=== PATIENT | female | born 1995 | race Caucasian/White ===

== ENCOUNTER → 2018-05-02 09:49 | Outpatient (CLI) | payer OTHER, SELFPAY ==
[2018-05-02 10:57] LABS: Basophils % 0.7 % (0.1-2.0); Eosinophils % 0.7 % (0.1-12.0); Hematocrit 46.4 % (37.0-47.0); Hemoglobin 15.1 g/dL (12.2-16.2); Lymphocytes # 2.5 K/mm3 (0.7-4.5); Lymphocytes % 39.2 % (10-50); Mean Corpuscular HGB Conc 32.5 g/dL (31.8-35.4); Mean Corpuscular Hemoglobin 31.2 pg (27.0-31.2); Mean Platelet Volume 7.4 fl (7.4-10.4); Monocytes # 0.3 K/mm3 (0.1-1.0); Monocytes % 4.3 % (1.7-9.3); Neutrophils # 3.4 K/mm3 (1.8-7.8); Neutrophils % 55.2 % (37.0-80.0); Platelet Count 240 K/mm3 (142-424); Red Blood Count 4.83 M/mm3 (4.20-5.40); Red Cell Distribution Width 12.3 % (11.5-17.5); White Blood Count 6.2 K/mm3 (4.8-10.8)
[2018-05-02 11:15] LABS: Alanine Aminotransferase 20 U/L (12-78); Albumin Level 3.8 gm/dL (3.4-5.0); Albumin/Globulin Ratio 1.1 (1.1-1.8); Alkaline Phosphatase 96 U/L (46-116); Anion Gap 15.7 mEq/L (5-15); Aspartate Amino Transferase 15 U/L (15-37); Bilirubin,Total 0.4 mg/dL (0.2-1.0); Blood Urea Nitrogen 13 mg/dL (7-18); Calcium 8.8 mg/dL (8.5-10.1); Carbon Dioxide 22 mmol/L (21.0-32.0); Chloride 104 mmol/L (98-107); Creatinine,Serum 0.85 mg/dL (0.55-1.02); Estimated Glomerular Filt Rate 84 ml/min (>60); GFR (African American) 101 ML/MIN (>60); Globulin 3.4 gm/dl (1.3-3.2); Glucose 84 mg/dL (74-106); Potassium 3.7 mmoL/L (3.5-5.1); Sodium 138 mmol/L (136-145); Total Protein,Serum 7.2 gm/dL (6.4-8.2)
[2018-05-03 17:19] LABS: Vitamin B12 305 pg/mL (232-1245); Vitamin D 25 Hydroxy 41.1 ng/mL (30.0-100.0)
== END ==
PROVIDERS: PCP Internal Medicine Adolescent Medicine; Visit Provider Nurse Practitioner Family
DX: F41.8 Other specified anxiety disorders (principal); R53.81 Other malaise
CPT/HCPCS: 36415; 80053; 82607; 82652; 84443; 85025

== ENCOUNTER → 2018-12-04 07:45 | Outpatient (CLI) | payer BC, SELFPAY ==
[2018-12-04 13:39] LABS: Basophils % 0.9 % (0.1-2.0); Eosinophils # 0.1 K/mm3 (0.0-0.4); Eosinophils % 2.6 % (0.1-12.0); Hematocrit 43.2 % (37.0-47.0); Hemoglobin 14.2 g/dL (12.2-16.2); Lymphocytes # 1.7 K/mm3 (0.7-4.5); Lymphocytes % 36.2 % (10-50); Mean Corpuscular HGB Conc 32.8 g/dL (31.8-35.4); Mean Corpuscular Hemoglobin 31.2 pg (27.0-31.2); Mean Corpuscular Volume 94.9 fl (81-99); Mean Platelet Volume 7.6 fl (7.4-10.4); Monocytes # 0.2 K/mm3 (0.1-1.0); Monocytes % 4.9 % (1.7-9.3); Neutrophils # 2.6 K/mm3 (1.8-7.8); Neutrophils % 55.4 % (37.0-80.0); Platelet Count 192 K/mm3 (142-424); Red Blood Count 4.55 M/mm3 (4.20-5.40); Red Cell Distribution Width 12.5 % (11.5-17.5); White Blood Count 4.7 K/mm3 (4.8-10.8)
[2018-12-04 15:24] LABS: Anion Gap 12.7 mEq/L (5-15); Blood Urea Nitrogen 11 mg/dL (7-18); Calcium 8.9 mg/dL (8.5-10.1); Carbon Dioxide 27 mmol/L (21.0-32.0); Chloride 105 mmol/L (98-107); Creatinine,Serum 0.89 mg/dL (0.55-1.02); Estimated Glomerular Filt Rate 79 ml/min (>60); GFR (African American) 95 ML/MIN (>60); Glucose 88 mg/dL (74-106); Potassium 3.7 mmoL/L (3.5-5.1); Sodium 141 mmol/L (136-145)
[2018-12-06 09:45] LABS: Vitamin B12 318 pg/mL (232-1245)
== END ==
PROVIDERS: PCP Nurse Practitioner Family; Visit Provider Nurse Practitioner Family
DX: F41.8 Other specified anxiety disorders (principal); E53.8 Deficiency of other specified B group vitamins
CPT/HCPCS: 36415; 80048; 82607; 85025

== ENCOUNTER 2019-10-03 14:55 | Emergency (ER) | payer OTHER, SELFPAY ==
[2019-10-03 15:19] VITALS: BP 133/84; PULSE 101; RESP 20; TEMP 37.1; O2SAT 100; BMI 31.6
[2019-10-03 15:45] LABS: Basophils % 0.3 % (0.1-2.0); Eosinophils % 0.4 % (0.1-12.0); Hematocrit 44.3 % (37.0-47.0); Hemoglobin 15.2 g/dL (12.2-16.2); Lymphocytes # 1.9 K/mm3 (0.7-4.5); Lymphocytes % 22.9 % (10-50); Mean Corpuscular HGB Conc 34.4 g/dL (31.8-35.4); Mean Corpuscular Hemoglobin 32.3 pg (27.0-31.2); Mean Corpuscular Volume 93.7 fl (81-99); Mean Platelet Volume 7.4 fl (7.4-10.4); Monocytes # 0.3 K/mm3 (0.1-1.0); Monocytes % 3.4 % (1.7-9.3); Neutrophils # 5.9 K/mm3 (1.8-7.8); Platelet Count 241 K/mm3 (142-424); Red Blood Count 4.72 M/mm3 (4.20-5.40); White Blood Count 8.1 K/mm3 (4.8-10.8)
--- NOTE | 2019-10-03 15:46 | HMH.EDUTC ---
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 GO TO THE ER FOR ANY WORSENING SYMPTOMS OR CONCERNS Referrals: Arcenio Oconnell APRN [Primary Care Provider] - Time of Disposition: 15:48 Medical Decision Making - Medical Records Medical records reviewed: No: I reviewed the patient's medical records. - Mj Inquiry Pt receiving controlled substance: No Vital Signs: 10/03/19 15:19 10/03/19 15:53 Temperature 98.7 F 98.7 F Temperature Source Oral Pulse Rate 101 H Pulse Rate [Right Brachial] 101 H Respiratory Rate 20 20 Blood Pressure 133/84 Blood Pressure [Right Arm] 133/84 Blood Pressure Mean [Right Arm] 100 Blood Pressure Source [Right Arm] Automatic Cuff Blood Pressure Position [Right Arm] Sitting 02 Sat by Pulse Oximetry 100 Oxygen Delivery Method Room Air - Lab Data Lab Results 10/03/19 15:20: WBC 8.1, RBC 4.72, Hgb 15.2, Hct 44.3, MCV 93.7, MCH 32.3 H, MCHC 34.4, RDW 13.0, Plt Count 241, MPV 7.4, Neut % (Auto) 73.0, Lymph % (Auto) 22.9, [place] % (Auto) 3.4, Eos % (Auto) 0.4, Baso % (Auto) 0.3, Neut # (Auto) 5.9, Lymph # (Auto) 1.9, [place] # (Auto) 0.3, Eos # (Auto) 0.0, Baso # (Auto) 0.0 10/03/19 15:20: PT 10.7, INR 1.04, APTT 21.9 L 10/03/19 15:20: Total Bilirubin 0.4, Direct Bilirubin 0.3, Conjugated Bilirubin 0.0, Indirect Bilirubin 0.1, Unconjugated Bilirubin 0.1, AST 27, ALT 19, Alkaline Phosphatase 83, Total Protein 7.7, Albumin 4.7 Result diagrams: 10/03/19 15:20 Orders (Tests/Meds): ED MEDICATIONS Discontinued Medications Generic Name Dose Route Start Last Admin Trade Name Freq PRN Reason Stop Dose Admin Tetanus/Reduced Diphtheria/Acell Pertussis 0.5 ml 10/03/19 15:26 10/03/19 15:35 Adacel Tdap 0.5ml Syringe IM 10/03/19 15:27 0.5 ml .ONCE ONE Administration ORDERS Category Date Time Status HIV Panel [id number] Stat Lab 10/03/19 15:20 Received [facility] [place] HPI - General Stated complaint: needle stick Time Seen by Provider: 10/03/19 15:25 Mode of Arrival: Ambulatory Source of Information: Patient Limitations: No Limitations Description of Symptoms (Recalled from Triage Doc. by RN): PATIENT C/O CONTAMINATED NEEDLE STICK AT WORK APPROX 1400 TODAY HEENT Symptoms (Recalled from RN notes): No Resp Symptoms (Recalled from RN notes): No Skin Symptoms (Recalled from RN notes): Yes MS Symptoms (Recalled from RN notes): No Functional Status (Recalled from RN notes): WNL - History of Present Illness Provider Complaint: She was at work today ([employer]) when she accidentily got a needle stick today after sticking a patient. She is here to have base line lab work done. Her tetanus immunization is not up to date. - Related Data Home Medications Medication Instructions Recorded Confirmed Buspirone HCl 15 mg PO DAILY 08/31/18 10/03/19 Venlafaxine HCl [Effexor Xr] 187 mg PO DAILY 08/31/18 10/03/19 norgestrel-ethinyl estradioL 1 tab PO DAILY 08/31/18 10/03/19 [Atl-Voruoczw-78 Tablet] Allergies Allergy/AdvReac Type Severity Reaction Status Date / Time No Known Allergies Allergy Verified 08/31/18 13:14 - Worker's Comp Is this a Worker's Comp case?: Yes [facility] History - Hepatitis A Screen Drug use history?: No High risk sexual behaviors?: No History of sexually transmitted infection?: No Currently employed?: No Childcare worker?: No Do you have indoor plumbing?: Yes Do you have electricity?: Yes Attestation statement:: This patient has been screened for Hepatitis A risk factors. I have reviewed the patient's past medical history: Yes - Social History Alcohol Intake: never Occupational Status: employed ROS Obtained
[2019-10-03 15:53] VITALS: BP 133/84; PULSE 101; RESP 20; TEMP 37.1; O2SAT 100
[2019-10-03 15:58] LABS: Alanine Aminotransferase 19 U/L (12-78); Albumin Level 4.7 g/dl (3.5-5.0); Alkaline Phosphatase 83 U/L (38-126); Aspartate Amino Transferase 27 U/L (14-36); Bilirubin,Direct 0.3 mg/dl (0.0-0.4); Bilirubin,Indirect 0.1 mg/dL (0.0-0.9); Bilirubin,Total 0.4 mg/dl (0.2-1.3); Bilirubin,Unconjugated 0.1 mg/dL (0.0-1.1); Total Protein,Serum 7.7 g/dl (6.3-8.2)
[2019-10-03 16:01] LABS: Activated Partial Thrombo Time 21.9 seconds (23.6-34.0); INR 1.04 (0.9-1.1); Prothrombin Time 10.7 seconds (9.4-11.8)
[2019-10-05 14:36] LABS: HIV Screen 4th Generation wRfx Non Reactive (Non Reactive)
== END 2019-10-03 15:55 | disposition home or self-care (01) ==
PROVIDERS: Emergency Provider Internal Medicine Adolescent Medicine; PCP Nurse Practitioner Family
DX: S61.230A Puncture wound without foreign body of right index finger without damage to nail, initial encounter (principal); W26.8XXA Contact with other sharp object(s), not elsewhere classified, initial encounter; W45.8XXA Other foreign body or object entering through skin, initial encounter; Y92.69 Other specified industrial and construction area as the place of occurrence of the external cause; Y99.0 Civilian activity done for income or pay; Z23 Encounter for immunization
CPT/HCPCS: 80076; 85025; 85610; 85730; 86703; 90471; 90715; 99201; G0432

== ENCOUNTER → 2021-04-28 10:16 | Outpatient (CLI) | payer BC, SELFPAY | PROVIDERS: PCP Internal Medicine Adolescent Medicine; Visit Provider Nurse Practitioner | DX: Z20.822 Contact with and (suspected) exposure to COVID-19 (principal) | CPT/HCPCS: C9803; U0003; U0005 ==

== ENCOUNTER 2022-06-04 10:38 | Emergency (ER) | payer BC, SELFPAY ==
[2022-06-04 10:45] VITALS: BP 138/82; PULSE 92; RESP 18; TEMP 36.4; O2SAT 98; BMI 30.5
[2022-06-04 10:58] LABS: Apearance,Urine Clear (Clear); Bilirubin,Urine Negative (Negative); Blood, Urine Negative (Negative); Color,Urine Dark Yellow (Yellow); Glucose,Urine (UA) Negative (Negative); Ketones,Urine Negative (Negative); Protein,Urine Negative (Negative); Specific Gravity, Urine 1.015 (1.005-1.030); UTC Leukocyte Esterase,Urine 2+ (Negative); UTC Nitrate,Urine Negative (Negative); Urobilinogen,Urine 0.2 EU/dl (0.2)
--- NOTE | 2022-06-04 11:11 | EXP.UTC ---
Discharge Plan Disposition Patient Disposition: Home, Self-Care Condition: Good Prescriptions Prescriptions: New methylprednisolone [Medrol ([place])] 4 mg tablets,dose pack See Rx Instructions .Route .COMPLEX 6 Days Qty: 21 0RF Rx Instructions: taper pack; nitrofurantoin monohyd/m-cryst [Macrobid] 100 mg capsule 100 mg PO Q12H 5 Days Qty: 10 0RF Rx Instructions: must administer with a meal/food No Action buspirone [BuSpar] 15 mg Tablet 15 mg PO DAILY desvenlafaxine succinate 100 mg tablet extended release 24 hr 100 mg PO DAILY Label Comments: TAKE ONE TABLET BY MOUTH EVERY DAY Ozempic 0.25 mg or 0.5 mg(2 mg/1.5 mL) pen injector 0.5 mg SQ WEEKLY Rx Instructions: 0.25mg weekly for 2 weeks then 0.5mg two weeks Referrals Follow up/Referrals: Akbar Gates MD [Primary Care Provider] - See instructions Activity Restrictions/Add. Instructions Additional Instructions/Restrictions: *Increase fluids. Water not Soda or Tea *Start antibiotic immediately and be sure to take as ordered for the FULL length of time although you should start to see improvement over the next 48 hours *Be SURE to follow up anytime for new or worsening symptoms with your family doctor. AND in 48 hours for urine culture results with your family doctor, if you do not have a doctor then you may call back to the [facility] for urine culture results and further treatment. We do recommend that you choose and establish care with a Primary Care Physician. ?AND follow up with them ?in 10-14 days to repeat UA to ensure infection is resolved and blood no longer present *Be sure to let your PCP know that we sent urine cultures from the [facility] so they can follow up to ensure that you area the on the correct antibiotic Call your doctor office and make appointment for 48 hours (2 days from today) ?to follow up and get the results of your urine culture and further treatment Over the counter Motrin may help with sciatica pain if you can take it Clinical Impressions Clinical Impression: UTI (urinary tract infection) Qualifiers: Urinary tract infection type: site unspecified Hematuria presence: without hematuria Qualified Code(s): N39.0 - Urinary tract infection, site not specified Sciatica Qualifiers: Laterality: unspecified laterality Qualified Code(s): M54.30 - Sciatica, unspecified side Instructions Patient Instructions: DI for Urinary Tract Infection (UTI), DI for Back Pain With Sciatica Discharge ED Provider: Anuradha Kolb [facility] General Stated complaint: Low back pain no accident Mode of Arrival: Ambulatory Source of Information: Patient Limitations: No Limitations Time Seen by Provider: 06/04/22 11:11 Description of Symptoms (Recalled from Triage Doc. by RN): PATIENT C/O MID LOWER BACK PAIN THAT RADIATES DOWN LEFT LEG HEENT Symptoms (Recalled from RN notes): No Resp Symptoms (Recalled from RN notes): No Skin Symptoms (Recalled from RN notes): No MS Symptoms (Recalled from RN notes): Yes Functional Status (Recalled from RN notes): WNL History of Present Illness Provider Complaint: Patient states that she has been going to gym for the last little bit and has been working out States that she thinks she may have a UTI and having issues with sciatica States that she is having achy like pain in her lower back but also having pain in her hip area that is going into her her left leg States that right leg hurts a little but worse in her left like she had before with sciatica Denies loss of control of bowel or bladder Related Data Home Medications Medication Instructions Recorded Confirmed buspirone 15 mg tablet 15 mg PO DAILY Anxiety 06/04/22 06/04/22 desvenlafaxine succinate 100 mg 100 mg PO DAILY Depression 06/04/22 06/04/22 tablet,extended release 24 hr semaglutide 0.25 mg or 0.5 mg (2 0.5 mg SQ WEEKLY Weight loss 06/04/22 06/04/22 mg/1.5 mL) subcutaneous pen injector (Ozempic) Previous Rx's Medic
[2022-06-04 11:26] LABS: Urine Pregnancy, HCG Qual. Negative (Negative)
[2022-06-04 11:42] VITALS: BP 138/82; PULSE 92; RESP 18; TEMP 36.4; O2SAT 98
== END 2022-06-04 11:50 | disposition home or self-care (01) ==
PROVIDERS: Emergency Provider Nurse Practitioner; PCP Internal Medicine Adolescent Medicine
DX: N39.0 Urinary tract infection, site not specified (principal); M54.30 Sciatica, unspecified side
CPT/HCPCS: 81003; 81025; 87086; 96372; 99213; 99214; G0463

== ENCOUNTER → 2022-11-11 11:15 | Outpatient (CLI) | payer BC, SELFPAY | PROVIDERS: PCP Nurse Practitioner Family; Visit Provider Nurse Practitioner Family | DX: J04.0 Acute laryngitis (principal) | CPT/HCPCS: 87070; 87077 ==

== ENCOUNTER 2023-07-18 14:00 | Outpatient (RCR) | payer BC, SELFPAY | END 2023-07-18 15:10 | disposition home or self-care (01) | LOC: PT 14:00 | PROVIDERS: Visit Provider Orthopaedic Surgery | DX: M22.42 Chondromalacia patellae, left knee (principal) | CPT/HCPCS: 97010; 97014; 97110; 97140; 97163; 97164; 97530; G0283 ==

== ENCOUNTER 2024-02-24 12:42 | Emergency (ER) | payer BC, SELFPAY ==
[2024-02-24 12:50] VITALS: BP 117/60; PULSE 104; RESP 21; TEMP 36.7; O2SAT 98; BMI 33.7
--- NOTE | 2024-02-24 13:05 | EXP.UTC ---
Discharge Plan Disposition Patient Disposition: Home, Self-Care Condition: Good Prescriptions Prescriptions: New cephalexin 500 mg tablet 500 mg PO BID 7 Days Qty: 14 0RF No Action desvenlafaxine succinate 100 mg tablet extended release 24 hr 100 mg PO DAILY Patient Comments: TAKE ONE TABLET BY MOUTH EVERY DAY FOR DEPRESSION Referrals Follow up/Referrals: Akbar Gates MD [Primary Care Provider] - See instructions Activity Restrictions/Add. Instructions Additional Instructions/Restrictions: Increase fluids, water and not soda or tea. Can drink cranberry juice or cranberry extract. Wipe front to back Wear cotton underwear Empty bladder after intercourse Start antibiotics immediately and make sure you take the full course although you may start to see improvement over the next 48 hours. You can eat yogurt or take probiotics to decrease diarrhea or yeast infection caused by the antibiotic Be sure to follow-up anytime for new or worsening symptoms in 48 hours for wound urine culture results be sure to let you PCP no recent urine for culture so they can request records and ensure that you have appropriate antibiotic if you are not getting better or getting worse. If symptoms worsen or do not improve return or be seen in the ER. Follow-up with primary care this week. Call [facility] or be checked out in the ER if abdominal pain or concerns Clinical Impressions Clinical Impression: UTI (urinary tract infection) Qualifiers: Urinary tract infection type: site unspecified Hematuria presence: without hematuria Qualified Code(s): N39.0 - Urinary tract infection, site not specified Instructions Patient Instructions: DI for Urinary Tract Infection (UTI) Print Language Print Language: Chinese Discharge ED Provider: Ronnie ([facility])[place] [facility] [place] General Stated complaint: uti Mode of Arrival: Ambulatory Source of Information: Patient Limitations: No Limitations Time Seen by Provider: 02/24/24 13:01 Description of Symptoms (Recalled from Triage Doc. by RN): PATIENT C/O PAIN AND FREQUENCY WITH URINATION THAT STARTED TODAY HEENT Symptoms (Recalled from RN notes): No Resp Symptoms (Recalled from RN notes): No Skin Symptoms (Recalled from RN notes): No MS Symptoms (Recalled from RN notes): No Functional Status (Recalled from RN notes): WNL History of Present Illness Provider Complaint: 28-year-old female presents for burning with urination, frequency and abdominal pain that started today. Patient is 20 weeks . Related Data Home Medications ?Medication ?Instructions ?Recorded ?Confirmed desvenlafaxine succinate 100 mg 100 mg PO DAILY 02/24/24 02/24/24 tablet,extended release 24 hr Previous Rx's ?Medication ?Instructions ?Recorded cephalexin 500 mg tablet 500 mg PO BID 7 days #14 tabs 02/24/24 Allergies Allergy/AdvReac Type Severity Reaction Status Date / Time No Known Allergies Allergy Verified 08/28/23 12:58 Worker's Comp Is this a Worker's Comp case?: No [facility] Disclaimer: The information contained in this section may have been updated after the patient was seen, as this information can be updated by other users. Medical History , [employer]) Anemia Migraine Hypertension Generalized anxiety disorder Depression Anxiety Surgical History , [employer]) History of bilateral knee replacement Family History , [employer]) Hyperlipidemia Cancer Hypertension Social History , [employer]) Smoking Status: Never smoker second hand exposure: No alcohol intake: current alcohol intake frequency: a few times a month counseling given: No substance use type: denies use counseling given: No current occupational status: employed Travel in the last 8 weeks: None adopted: No caregiver/support person: Yes (she has an 18 month old) foster care: No household members: spouse housing: house lives independently: Yes marital status: number of children: 1 number of grandchildren: 0 education level: college service: No 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 caffeine: Yes physical activity: none working smoke detector in home: Yes fire extinguisher in home: Yes carbon monox detector in home: Yes firearms in home: Yes firearms unloaded and locked: Yes do you feel safe at home: Yes victim of physical abuse: No victim of emotional abuse: No victim of sexual abuse: No would you like helpful sources: No ROS Obtained: Yes Systems reviewed as appropriate & no additional complaints except as documented Genitourinary Female Genitourinary: Reports system reviewed and no additional complaints, except as documented, Reports as per HPI, Reports urinary frequency, Reports urinary hesitancy and Reports urinary urgency Physical Exam General General appearance: alert and in no apparent distress Eye Eye exam: Present normal appearance and PERRL ENT ENT exam: Present normal exam Respiratory Respiratory exam: Present normal lung sounds bilaterally Cardiovascular Cardiovascular exam: Present regular rate and normal rhythm Abdominal Exam Abdominal exam: Present soft and normal bowel sounds Neurological Exam Neurological exam: Present alert and oriented X3 Skin Skin exam: Present warm and intact Lymphatic Lymphatic Findings: no adenopathy Medical Decision Making Medical Records Medical records reviewed: Yes I reviewed the patient's medical records. Screening: Per USPSTF and CDC recommendations, given the prevalence of disease in our region, it is our hospital?s policy to screen for HIV and viral Hepatitis for all patients aged 18 and over and those with ongoing risk factors. Mj Inquiry Pt receiving controlled substance: No Mj was queried for this patient: No Vital Signs: 02/24/24 12:50 Temperature 98.0 F Temperature Source Oral Pulse Rate [Left Brachial] 104 H Respiratory Rate 21 Blood Pressure [Left Arm] 117/60 Blood Pressure Mean [Left Arm] 79 Blood Pressure Source [Left Arm] Automatic Cuff Blood Pressure Position [Left Arm] Sitting 02 Sat by Pulse Oximetry 98 Oxygen Delivery Method Room Air Lab Data Lab results reviewed: Yes I reviewed the patient's lab results. Orders (Tests/Meds): ORDERS Category Date Time Status Urine Culture Stat Micro 02/24/24 12:58 Ordered
[2024-02-24 13:12] VITALS: BP 117/60; PULSE 104; RESP 21; TEMP 36.7; O2SAT 98
[2024-02-24 13:22] LABS: Apearance,Urine Cloudy (Clear); Color,Urine Yellow (Yellow)
[2024-02-24 13:23] LABS: Bilirubin,Urine Negative (Negative); Blood, Urine Trace (Negative); Glucose,Urine (UA) Negative (Negative); Ketones,Urine Negative (Negative); Protein,Urine Negative (Negative); UTC Leukocyte Esterase,Urine 2+ (Negative); UTC Nitrate,Urine Negative (Negative); Urobilinogen,Urine 0.2 EU/dl (0.2)
== END 2024-02-24 13:13 | disposition home or self-care (01) ==
PROVIDERS: Emergency Provider Nurse Practitioner Family; PCP Internal Medicine Adolescent Medicine
DX: N39.0 Urinary tract infection, site not specified (principal)
CPT/HCPCS: 81003; 87086; 99213; G0381

== ENCOUNTER 2024-02-24 16:51 | Outpatient (CLI) | payer BC, SELFPAY ==
[2024-02-24 17:05] VITALS: BMI 33.5
[2024-02-24 17:19] VITALS: BP 127/72; PULSE 95; RESP 18; TEMP 36.7; O2SAT 97; BMI 33.5
[2024-02-24] MEDS: LACTATED RINGERS 1000ML 1,000 ML 999 ML IV (17:38)
[2024-02-24] MEDS: CEFTRIAXONE SODIUM 2 GM in 0.9 % SODIUM CHLORIDE 100 ML IV (18:25)
== END 2024-02-24 19:00 | disposition home or self-care (01) ==
LOC: OBOUT 16:53 → OB 16:54
PROVIDERS: PCP Internal Medicine Adolescent Medicine; Visit Provider Nurse Practitioner Obstetrics & Gynecology
DX: O26.892 Other specified pregnancy related conditions, second trimester (principal); R30.9 Painful micturition, unspecified; Z3A.21 21 weeks gestation of pregnancy
CPT/HCPCS: G0463; J0696; J7120

== ENCOUNTER 2024-04-02 15:23 | Outpatient (CLI) | payer BC, SELFPAY ==
[2024-04-02 15:53] VITALS: BMI 34.7
[2024-04-02 16:05] LABS: Appearance,Urine CLEAR (Clear); Bilirubin,Urine Negative (Negative); Blood, Urine Negative (Negative); Color,Urine YELLOW (Yellow); Glucose,Urine (UA) Negative (Negative); Ketones,Urine Negative (Negative); Leukocyte Esterase,Urine 1+ (Negative); Microscopic, Urine URINE MICROSCOPIC (MICROSCOPIC); Nitrate,Urine Negative (Negative); PH,Urine 6.5 (5.0-8.5); Protein,Urine Negative (Negative)
[2024-04-02 16:17] VITALS: BP 132/76; PULSE 97; RESP 18; TEMP 36.5; BMI 34.7
[2024-04-02 16:46] LABS: Bacteria,Urine 4+ /lpf; RBC,Urine 20-50 #/hpf (0-3); Squamous Epithelial Cell,Urine 20-50 #/hpf (0-5); WBC,Urine 50-100 #/hpf (0-3)
[2024-04-02 20:49] LABS: Barbiturates Screen,Urine Negative ng/ml (<200)
[2024-04-02 20:50] LABS: Benzodiazepines Screen,Urine Negative ng/ml (<200)
[2024-04-02 20:51] LABS: Amphetamine/Metha Screen,Urine Negative ng/ml (<1000); Cannabinoid Screen,Urine Negative ng/ml (<50)
[2024-04-02 20:52] LABS: Cocaine Screen,Urine Negative ng/ml (<300); Methadone Screen,Urine Negative ng/ml (<300)
[2024-04-02 20:53] LABS: Opiate Screen,Urine Negative ng/ml (<300)
[2024-04-02 20:54] LABS: Phencyclidine Screen,Urine Negative ng/ml (<25)
== END 2024-04-02 16:50 | disposition home or self-care (01) ==
LOC: OBOUT 15:26 → OB 15:27
PROVIDERS: PCP Internal Medicine Adolescent Medicine; Visit Provider Nurse Practitioner Obstetrics & Gynecology
DX: R10.84 Generalized abdominal pain (principal); O26.893 Other specified pregnancy related conditions, third trimester; Z3A.26 26 weeks gestation of pregnancy
CPT/HCPCS: 59025; 80307; 81001; 87086

== ENCOUNTER 2025-01-19 07:22 | Emergency (ER) | payer BC, SELFPAY ==
--- OUTSIDE RECORDS SUMMARY | 2024-07-02 06:30 | XMS_ITS ---
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 Medications Medication SIG (Take, Route, Frequency, Duration) Notes Start Date End Date Status Ondansetron 4 MG Tablet Disintegrating 1 tablet on the tongue and allow to dissolve Orally every 6 hours; Duration: 30 days 02/22/2024 Active Fioricet 50-300-40 MG Capsule 1 capsule as needed Orally every 4 hrs as needed; Duration: 5 days 06/03/2024 Active Pristiq Active (w/Iron & FA) 27-0.8 MG Tablet 1 tablet Orally Once a day Active Pantoprazole Sodium 40 MG Tablet Delayed Release 1 tablet1 hour before morning meal Orally Once a day; Duration: 30 days 05/16/2024 Active busPIRone HCl 15 MG Tablet Oral; Duration: 90 Days Active Ferrous Sulfate 325 (65 Fe) MG Tablet Delayed Release 1 tablet Orally Daily; Duration: 30 days 05/14/2024 Active Social History Sex Assigned At : Social History Observation Description Sex Assigned At Female Encounters Encounter Location Date Provider Diagnosis [facility] [address] [place] [address] 07/02/2024 Monet Bergeron Plan Of Treatment Next Appt Details Provider Name:Viki Cooper, 05/04/2025 01:45:00 PM, [address], [address], [place], [address], Progress Notes * Elis ESPITIA MDOB: [birth year] (29 yo F)Acc No.[id number]:07/02/2024 Patient: Elis Bailey Provider: Denise Bergeron MD :1995 A ge:29 Y S ex:Female Date:07/02/2024 Address:[address] [place] [address] [id number] Subjective: * Chief Complaints: * 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 * Medications: T akingbusPIRone HCl 15 MG Tablet Oral Ferrous Sulfate 325 (65 Fe) MG Tablet Delayed Release 1 tablet Orally Daily Fioricet(Hkjioswnxo-CADV-Ddwbcski) 50-300-40 MG Capsule 1 capsule as needed Orally every 4 hrs as needed Ondansetron 4 MG Tablet Disintegrating 1 tablet on the tongue and allow to dissolve Orally every 6 hours Pantoprazole Sodium 40 MG Tablet Delayed Release 1 tablet1 hour before morning meal Orally Once a day (w/Iron & FA)( Rvkbrdha-Dxp-Cx-FA) 27-0.8 MG Tablet 1 tablet Orally Once a day Pristiq Taking busPIRone HCl 15 MG Tablet Oral Taking Ferrous Sulfate 325 (65 Fe) MG Tablet Delayed Release 1 tablet Orally Daily Taking Fioricet(Ovgmcgsypt-HSMY-Rzgxzabn) 50-300-40 MG Capsule 1 capsule as needed Orally every 4 hrs as needed Taking Ondansetron 4 MG Tablet Disintegrating 1 tablet on the tongue and allow to dissolve Orally every 6 hours Taking Pantoprazole Sodium 40 MG Tablet Delayed Release 1 tablet1 hour before morning meal Orally Once a day Taking (w/Iron & FA)( Ocsgzifp-Wvl-Ao-FA) 27-0.8 MG Tablet 1 tablet Orally Once a day Taking Pristiq Billing Information: * Procedure Codes: * Electronic signature of Deangelo Bergeron MD on 01/19/2025 at 07:39 AM EDT Sign off status: Pending Visit Status: C HK (Check Out) * Provider: Denise Bergeron MD Date: 0 07/02/2024 Generated for Beni ng/Cordeliag/eTransmitting on: 1 07:39 AM EDT
[2025-01-19 07:33] VITALS: BP 119/70; PULSE 88; PULSE 89; RESP 18; TEMP 36.8; O2SAT 99; BMI 31.8
--- NOTE | 2025-01-19 07:39 | CT_ITS ---
FINAL REPORT TECHNIQUE: Thin section axial images are obtained through the abdomen and pelvis after intravenous contrast. Reconstruction images were obtained from the axial data. This study was performed with techniques to keep radiation doses as low as reasonably achievable, (ALARA). Individualized dose reduction techniques using automated exposure control or adjustment of mA and/or kV according to the patient's size were employed. CLINICAL HISTORY: Lower abd pain, bloody diarrhea COMPARISON: None FINDINGS: LUNG BASES: Lung bases are clear. Heart size is normal. LIVER: Homogeneous. No focal lesion. GALLBLADDER/BILIARY SYSTEM: Gallbladder is present. No gallstones. No biliary dilatation. SPLEEN: Unremarkable. PANCREAS: Unremarkable. ADRENALS: Unremarkable. KIDNEYS/URETERS/BLADDER: No hydronephrosis, renal mass, or renal stone. Unremarkable urinary bladder. GI TRACT: No small bowel obstruction or dilatation. The appendix is not visualized. There are no secondary signs of appendicitis. There is long segment wall thickening of the descending colon most consistent with colitis. PELVIC ORGANS: The uterus and ovaries are unremarkable for age. LYMPH NODES/RETROPERITONEUM/MESENTERY: No lymphadenopathy. No abdominal aortic aneurysm. ABDOMINAL WALL: The abdominal wall is intact. FREE FLUID: No ascites. BONES: No acute osseous abnormality. IMPRESSION: Descending colitis, favor infectious or inflammatory etiology Reviewed, Interpreted and Dictated by Sara Flores MD Transcribed by Donya Lewis Authenticated and [facility]
--- NOTE | 2025-01-19 07:40 | ED_ITS ---
Discharge Plan Disposition Patient Disposition: Home, Self-Care Condition: Good Prescriptions Prescriptions: New ondansetron 4 mg tablet,disintegrating 4 mg PO Q6H PRN (Reason: nausea and vomiting) Qty: 14 0RF No Action desvenlafaxine succinate 100 mg tablet extended release 24 hr 100 mg PO DAILY Qty: 90 3RF buspirone 10 mg tablet 20 mg PO QHS Qty: 60 2RF Zurzuvae 25 mg capsule 50 mg PO DAILY 14 Days Qty: 28 0RF Rx Instructions: administer with a high fat meal Referrals Follow up/Referrals: Akbar Gates MD [Primary Care Provider, Internal Medicine] - See instructions Activity Restrictions/Add. Instructions Additional Instructions/Restrictions: Your CT scans show colitis. If you continue to have bloody diarrhea over the course of the next week please come back and see us. Additionally, if you develop signs of dehydration, intractable nausea/vomiting, worsening pain, or start to develop lightheadedness, shortness of breath, or increasingly pale skin please return to the ER. You may take Zofran every 6 hours for nausea. Clinical Impressions Clinical Impression: Colitis Instructions Patient Instructions: DI for Colitis Print Language Print Language: Kazakh Discharge ED Provider: Justice Taylor General Adult HPI General Chief complaint: Abdominal Pain Stated complaint: Vomiting, bloody stools, GI Problems Time Seen by Provider: 01/19/25 07:26 Mode of Arrival: Ambulatory Source of Information: Patient Description of Symptoms (Recalled from ER Triage Doc. by RN): pt presents to the ED with vomiting, diarrhea, blood in stool, and abdominal pain. pt reports that she started having abdominal cramping on Sunday after eating greasy food. pt reports around midnight she started vomiting. pt has had diarrhea since Sunday night and noticed around 03:00 this morning she had blood in her stool and when she wiped. Denies chest pain and shortness of breath. History of Present Illness HPI narrative: This is a 29-year-old female patient, with past medical history of anxiety and depression, who is presenting to the emergency department today for evaluation of bloody diarrhea. Patient states that around 3 AM she began having bright red hematochezia. Stool is blood-streaked. She states that since 3 AM this morning, over the last 4 hours, she has had 3 episodes of bloody diarrhea. She states that she is having focal pain in the lower abdomen that is worse on the right. This has never happened before. She is not having any melena or hematemesis but she is having nausea and vomiting. She is not experiencing bleeding from anywhere else and specifically denies hemoptysis, hematuria, and vaginal bleeding. No fevers. This has never happened before. She has not noticed any hemorrhoids and does not have any anal pain that would be consistent with fissures. No family history or personal history of autoimmune related diseases. Related Data Previous Rx's ?Medication ?Instructions ?Recorded buspirone 10 mg tablet 20 mg (2 x 10 mg) PO QHS #60 tabs 08/05/24 desvenlafaxine succinate 100 mg 100 mg PO DAILY #90 ta bs 08/05/24 tablet,extended release 24 hr zuranolone 25 mg capsule (Zurzuvae) 50 mg (2 x 25 mg) PO DAILY 14 days 09/04/24 #28 caps ondansetron 4 mg disintegrating 4 mg PO Q6H PRN nausea and 01/19/25 tablet vomiting #14 tabs Allergies Allergy/AdvReac Type Severity Reaction Status Date / Time No Known Allergies Allergy Verified 12/19/24 10:58 [facility] Disclaimer: The information contained in this section may have been updated after the patient was seen, as this information can be updated by other users. Medical History Anemia Migraine Hypertension Generalized anxiety disorder Depression Anxiety Surgical History History of bilateral knee replacement Family History Other Cancer Hyperlipidemia Hypertension Social History Smoking Status: Never smoker second hand exposure: No alcohol intake: current alcohol intake frequency: a few times a month counseling given: No substance use type: denies use counseling given: No current occupational status: employed Travel in the last 8 weeks?: None adopted: No caregiver/support person: Yes (she has an 18 month old) foster care: No household members: spouse housing: house lives independently: Yes marital status: number of children: 1 number of grandchildren: 0 education level: college service: No 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 caffeine: Yes physical activity: none working smoke detector in home: Yes fire extinguisher in home: Yes carbon monox detector in home: Yes firearms in home: Yes firearms unloaded and locked: Yes do you feel safe at home: Yes victim of physical abuse: No victim of emotional abuse: No victim of sexual abuse: No would you like helpful sources: No Have you lived/traveled outside US in past 30 days?: No Contact w/someone who lives/traveled outside US past 30 days?: No Exposure to someone with infectious disease in past 14 days?: No Do you have a fever (greater than 100.4 F or 38 C)?: No Have you tested positive for COVID-19?: No Exposed to someone with COVID-19 in past 14 days?: No Do you have a sore throat?: No Do you have a cough?: No Do you have any weakness?: No Do you have any diarrhea?: Yes Are you experiencing any unusual bleeding?: Yes Do you have any muscle aches/pain?: No Do you have any abdominal pain?: No Are you experiencing loss of taste or smell?: No Other Medical History Have you received the Flu Vaccine for this season: No Have you received the Pneumonia Vaccine: No ROS Obtained: Yes Systems reviewed as appropriate & no additional complaints except as documented Physical Exam General General appearance: other (See MDM) Respiratory Respiratory exam: Present other (See MDM) Cardiovascular Cardiovascular exam: Present other (See MDM) Neurological Exam Neurological exam: Present other (See MDM) Medical Decision Making Medical Records Medical records reviewed: Yes I reviewed the patient's medical records. Screening: Per USPSTF and CDC recommendations, given the prevalence of disease in our region, it is our hospital?s policy to screen for HIV and viral Hepatitis for all patients aged 18 and over and those with ongoing risk factors. Mj Inquiry Pt receiving controlled substance: No Mj was queried for this patient: No Vital Signs: 01/19/25 07:33 01/19/25 07:33 01/19/25 08:00 Temperature 98.2 F 98.2 F Temperature Source Oral Oral Pulse Rate 89 Pulse Rate [Right] 88 Respiratory Rate 18 18 Blood Pressure 119/70 92/59 L Blood Pressure [Right Arm] 119/70 Blood Pressure Mean 70 Blood Pressure Mean [Right Arm] 86 Blood Pressure Source Automatic Cuff Blood Pressure Source [Right Arm] Automatic Cuff Blood Pressure Position Supine Blood Pressure Position [Right Arm] Supine 02 Sat by Pulse Oximetry 99 99 Oxygen Delivery Method Room Air Room Air 01/19/25 08:30 01/19/25 09:30 Temperature Temperature Source Pulse Rate 58 L Pulse Rate [Right] Respiratory Rate Blood Pressure 95/56 L 112/68 Blood Pressure [Right Arm] Blood Pressure Mean 70 77 Blood Pressure Mean [Right Arm] Blood Pressure Source Blood Pressure Source [Right Arm] Blood Pressure Position Blood Pressure Position [Right Arm] 02 Sat by Pulse Oximetry 100 Oxygen Delivery Method Lab Data Lab Results 01/19/25 07:43: WBC 9.1, RBC 4.92, Hgb 15.1, Hct 44.5, MCV 90.4, MCH 30.7, MCHC 33.9, RDW 12.5, Plt Count 218, MPV 10.1, Neut % (Auto) 80.3 H, Lymph % (Auto) 13.6, [place] % (Auto) 4.5, Eos % (Auto) 0.7, Baso % (Auto) 0.7, Neut # (Auto) 7.3, Lymph # (Auto) 1.2, [place] # (Auto) 0.4, Eos # (Auto) 0.1, Baso # (Auto) 0.1, PT 11.4, INR 1.03, APTT 24.8, Sodium 136, Potassium 4.0, Chloride 103, Carbon Dioxide 25, Anion Gap 12.0, BUN 13, Creatinine 0.70, Estimated Creat Clear 167, Estimated GFR 99, Est GFR ( Amer) 120, Glucose 106 H, Calcium 9.3, Total Bilirubin 0.4, AST 29, ALT 26, Alkaline Phosphatase 123, Total Protein 7.5, Albumin 4.2, Globulin 3.3 H, Albumin/Globulin Ratio 1.3, Lipase 179, Serum HCG, Qual Negative, HCV Ab ANUPAM w/Rflx PCR Qn Negative, HIV Ag/Ab Combo Qual Negative 01/19/25 07:55: Blood Type O Positive, Antibody Screen Negative 01/19/25 09:13: Urine Color Yellow, Urine Appearance Clear, Urine pH 5.5, Ur Specific [place] 1.029, Urine Protein Negative, Urine Glucose (UA) Negative, Urine Ketones Negative, Urine Blood Negative, Urine Nitrate Negative, Urine Bilirubin Negative, Urine Urobilinogen 0.2, Ur Leukocyte Esterase Negative 01/19/25 07:43 01/19/25 07:43 Orders (Tests/Meds): ED MEDICATIONS Discontinued Medications Generic Name Dose Route Start Last Admin Trade Name Srikanthq PRN Reason Stop Dose Admin Lactated Ringer's 1,000 mls @ 999 mls/hr 01/19/25 07:42 01/19/25 09:07 Lactated Ringer's 1000 Ml Bag IV 01/19/25 08:42 Infused .Q1H1M ONE Infusion Iopamidol 75 ml 01/19/25 08:45 01/19/25 08:45 Iopamidol-370 (76%);100ml Bottle IV 01/19/25 08:46 75 ml ONCE ONE Administration Ondansetron HCl 4 mg 01/19/25 07:39 01/19/25 08:01 Ondansetron 4mg/2ml Vial IV 01/19/25 07:40 4 mg ONCE ONE Administration Sodium Chloride 10 ml 01/19/25 08:45 01/19/25 08:45 Sodium Chloride 0.9% 10ml Syr (Rad Only) IV 01/19/25 08:46 10 ml ONCE ONE Administration ORDERS Category Date Time Status Type and Screen Stat BBK 01/19/25 07:[address] abdomen pelvis w con Stat Cat Scan 01/19/25 07:39 Completed Activated Partial Thrombo Time Stat Lab 01/19/25 07:43 Completed CBC w/Auto Diff [Complete Blood Count Auto Diff] Stat Lab 01/19/25 07:43 Completed CMP [Comprehensive Metabolic Panel] Stat Lab 01/19/25 07:43 Completed Diarrhea 23 Panel, PCR Stat Lab 01/19/25 07:42 Ordered HCG Qualitative, Serum Stat Lab 01/19/25 07:43 Completed HIV Combo Stat Lab 01/19/25 07:43 Completed Hepatitis C Ab Qual. W/ RFX Stat Lab 01/19/25 07:43 Completed Lactic Acid Stat Lab 01/19/25 07:39 Ordered Lipase Stat Lab 01/19/25 07:43 Completed PT INR [Prothrombin Time INR] Stat Lab 01/19/25 07:43 Completed Urinalysis and Microscopic Stat Lab 01/19/25 09:13 Results Medical Decision Narrative: In summary, this is a 29-year-old female patient who is presenting for multiple episodes of bloody diarrhea over the last 4 hours. This has never happened before. She has not experiencing bleeding from any other orifices. No melena or hematemesis. She has not recently been ill. No history of autoimmune diseases. Her only comorbidities include a past medical history of anxiety and depression. On initial evaluation of the patient they were resting comfortably in no acute distress and nontoxic in appearance. They are hemodynamically stable, saturating well room air, and are neurologically intact. On physical examination the patient she is appropriately alert and interactive with GCS of 15. Heart and lungs are clear to auscultation bilaterally. She has focal tenderness in the right lower quadrant and left lower quadrant, no rebound or peritonitis. Capillary refill is adequate. She has no conjunctival pallor. On further questioning she states that she is not experiencing any symptoms of anemia such as fatigue, dyspnea on exertion, or lightheadedness with standing. Differential diagnosis includes hemorrhoidal bleeding, diverticular bleeding, angiodysplasia, infectious colitis, inflammatory bowel disease, among others Workup was initiated with hematologic labs including a type and screen as well as a diarrhea panel and a CT scan of the abdomen and pelvis. Initial interventions include 4 mg of Zofran and 1 L of lactated Ringer's. Labs personally interpreted by me demonstrate no leukocytosis or anemia. Hemoglobin is 15. PT/INR is within normal limits. No electrolyte derangements or evidence of acute kidney injury. No transaminitis or elevated bilirubin. Lipase is normal. Qualitative hCG is also normal. No evidence of urinary tract infection on urinalysis. We did proceed with a CT scan of the abdomen and pelvis which was personally interpreted by me and demonstrates no evidence of large pneumoperitoneum. Official radiology read is in agreement and states the patient does have evidence of descending colitis, which could be infectious or inflammatory in nature. Given the fact that the patient does not have a longstanding history of abdominal pain and diarrhea and has no history of autoimmune diseases this is unlikely to be inflammatory colitis. The patient has been unable to provide a stool sample while here in the emergency department. I have offered to send her with an outpatient order for stool sample and have her return to the outpatient lab to provide us with a stool sample. She would like to defer this at the at this time and would like to go home and continue to monitor her symptoms over the next week. I have given her strict return precautions in the event that she experiences symptomatic anemia, intractable nausea and vomiting/diarrhea with signs of dehydration, or symptoms persisting for greater than a week. On repeat assessment her blood pressure is normal and her heart rate is normal. She is demonstrating no signs of sepsis. All parties are agreeable with the decision to discharge her home Critical Care Critical Care Time Critical Care Time: No
--- OUTSIDE RECORDS SUMMARY | 2025-01-19 07:40 | XMS_ITS | Clinical Summary ---
Author Organization [facility] Address [address] [place] [address] Care Team Providers Care Case Investigator Name Role Phone Akbar Gates MD Primary Care Provider + [phone] Allergies No known active allergies Medications busPIRone (BUSPAR) 15 MG tablet Take 1 tablet by mouth Daily. Active desvenlafaxine (PRISTIQ) 50 MG 24 hr tablet Take 25 mg by mouth Daily. Active Vit-Fe Fumarate-FA ( 27-) 27-1 MG tablet tablet Take by mouth Daily. Active acetaminophen (TYLENOL) 325 MG tablet Take 2 tablets by mouth Every 4 (Four) Hours As Needed for Mild Pain . 09/27/2020 Active ferrous sulfate 325 (65 FE) MG tablet Take 1 tablet by mouth Daily With Breakfast. Active omeprazole (priLOSEC) 20 MG capsule Take 1 capsule by mouth Daily. Active docusate sodium 100 MG capsule Take 1 capsule by mouth 2 (Two) Times a Day. 60 capsule 07/04/2024 9:26 AM EDT 07/04/2024 Active ibuprofen (ADVIL,MOTRIN) 600 MG tablet Take 1 tablet by mouth Every 6 (Six) Hours As Needed for Mild Pain 60 tablet 07/04/2024 9:26 AM EDT 07/04/2024 Active Active Problems Problem Noted Date Diagnosed Date Term 09/27/2020 Resolved Problems Problem Noted Date Diagnosed Date Resolved Date Third trimester 05/18/2024 Vaginal delivery 09/27/2020 07/02/2024 with 37 weeks completed gestation 09/27/2020 07/02/2024 38 weeks gestation of 09/24/2020 09/27/2020 Gestational hypertension 09/24/2020 uterine contractions 08/31/2020 09/24/2020 Pelvic pain affecting pregna ncy in third trimester, antepartum 07/03/2020 09/24/2020 Family History Medical History Relation Name Comments High cholesterol Father Cancer Maternal Grandfather Hypertension Mother Parkinsonism Paternal Grandfather Alzheimer's disease Paternal Grandmother Relation Name Status Comments Father Maternal Grandfather Mother Paternal Grandfather Paternal Grandmother Social History Tobacco Use Types Packs/Day Years Used Date Smoking Tobacco: Never Smokeless Tobacco: Never Alcohol Use Standard Drinks/Week Comments Never 0 (1 standard drink = 0.6 oz pur e alcohol) [facility] Utilities Answer Date Recorded In the past 12 months has e electric, gas, oil, or water company threatened to shut off services in your home? No 07/02/2024 AUDIT-C Answer Date Recorded Q1: How often do you have a drink containing alcohol? Never 07/02/2024 Q2: How many drinks containi ng alcohol do you have on a typical day when you are drinking? Patient does not drink Q3: How often do you have si x or more drinks on one occasion? Never 07/02/2024 Overall Financial Resource Strain (CARDIA) Answe r Date Recorded How hard is it for you to pa y for the very basics like food, housing, medical care, and heating? Not hard at all 07/02/2024 [facility] [place] [facility] Occupat ional Health - Occupational Stress Questionnaire Answer Date Recorded Do you feel stress - tense, restless, nervous, or anxious, or unable to sleep at night because your mind is troubled all the time - these days? Not at all 07/02/2024 Exercise Vital Sign Answer Date Recorde d On average, how many days pe r week do you engage in moderate to strenuous exercise (like a brisk walk)? 1 day 07/02/2024 On average, how many minutes do you engage in exercise at this level? 20 min 07/02/2024 Hunger Vital Sign Answer Date Recorded Within the past 12 months, y ou worried that your food would run out before you got the money to buy more. Never true 07/03/19 25 Within the past 12 months, t he food you bought just didn't last and you didn't have money to get more. Never true 07/02/2024 PRAPARE - Transportation Answer Date Re corded In the past 12 months, has l ack of transportation kept you from medical appointments or from getting medications? No 06/14 In the past 12 months, has l ack of transportation kept you from meetings, work, or from getting things needed for daily living? No 07/02/2024 [place] Depression Scale Answer Date Recorded [place] Depression Scale Total 5 07/03/2024 The thought of harming myself has occurred to me . Never 07/03/2024 Abuse Screen Answer Date Recorded Feels Unsafe at Home or Work/School no 07/02/2024 Feels Threatened by Someone no 06/14 Does Anyone Try to Keep You From Having Contact with Others or Doing Things Outside Your Home? no 07/02/2024 Physical Signs of Abuse Present no 07/02/2024 Housing Stability Answer Date Recorded Current Living Arrangements home 06/14 Potentially Unsafe Housing Conditions none 07/02/2024 Family and Community Support Answer Guilherme e Recorded If for any reason you need h elp with day-to-day activities such as bathing, preparing meals, shopping, managing finances, etc., do you get the help you need? I don't need any help 07/02/2024 How often do you feel lonely or isolated from those around you? Never 07/02/2024 Employment Answer Date Recorded Do you want help finding or keeping work or a job? I do not need or want help 07/02/2024 Disabilities Answer Date Recorded Difficulty Concentrating, Remembering or Making Decisions no 07/02/2024 Difficulty Managing Errands Independently no 07/02/2024 Education Answer Date Recorded Do you want help with school or training? For example, starting or completing job training or getting a high school diploma, GED or equivalent No 07/02/2024 Preferred Language Frisian 07/02/2024 PHQ-2 Answer Date Recorded Patient Health Questionnaire-2 Score 0 07/02/2024 Comments No Sex and Gender Information Value Date Recorded Sex Assigned at Not on file Legal Sex Female 4:30 PM EDT Gender Identity Not on file Sexual Orientation Not on file Last Filed Vital Signs Vital Sign Reading Time Taken Comments Blood Pressure 117/56 07/04/2024 9:05 AM EDT Pulse 84 07/04/2024 9:05 AM EDT Temperature 36.8 C (98.2 F) 07/04/2024 9:05 AM EDT Respiratory Rate 18 07/04/2024 9:05 AM EDT Oxygen Saturation 97% 07/03/2024 2:11 PM EDT Inhaled Oxygen Concentration - - Weight 103 kg (228 lb) 07/02/2024 8:42 AM EDT Height 167.6 cm (5' 6 ) 07/02/2024 8:42 AM EDT Body Mass Index 36.8 07/02/2024 8:42 AM EDT Plan of Treatment Health Maintenance Due Date Last Done Comments Annual Gynecologic Pelvic and Breast Exam 1995 ANNUAL PHYSICAL 06/27/2024 INFLUENZA VACCINE 11/14/2024 04/11/2024, , 01/28/2021, Additional history exists TDAP/TD VACCINES (3 - Td or Tdap) 09/15/2030 09/15/2020, 10/03/2019 CHLAMYDIA SCREENING Discontinued 12/03/2023 HEPATITIS C SCREENING Completed 12/03/2023, 020 Pneumococcal Vaccine 0-49 Aged Out No longer eligible based on patient's age to complete this topic Procedures Procedure Name Priority Date/Time Associated Diagnosis Comments CHLAMYDIA TRACHOMATIS, NEISSERIA GONORRHOEAE, PCR W/ CONFIRMATION Routine 12/03/2023 1:56 PM EDT care, subsequent , first trimester HEPATITIS C ANTIBODY Routine 12/03/2023 1:56 PM EDT care, subsequent , first trimester from Last 3 Months or Most Recently Relevant to Health Maintenance Results * Hepatitis C Antibody (12/03/2023 1:56 PM EDT) Hepatitis C Ab Non-Reacti ve Non-Reacti ve 12/03/2023 7:52 PM EDT [facility] Blood Venipuncture / Unknown 12/03/2023 1:56 PM EDT 12/03/2023 1:58 PM EDT Monet Bergeron MD LAB BLOOD ORDERABLES Final Re sult [facility]
[address] [place] [address], * Chlamydia trachomatis, Neisseria gonorrhoeae, PCR w/ confirmation - Urine, Urine, Clean Catch (12/03/2023 1:56 PM EDT) Chlamydia trachomatis, RAFAEL Negative Negative 12/06/2023 8:19 AM EDT [facility] Neisseria gonorrhoeae, RAFAEL Negative Negative 12/06/2023 8:19 AM EDT [facility] Urine Urine specimen obtained by clean catch procedure / Unknown Collection / Unknown 12/03/2023 1:56 PM EDT 12/03/2023 1:58 PM EDT Narrative [facility] - 12/06/2023 8:19 AM EDT Performed at: - [address] [id number] Installment Dealer: Jennifer Mckeon MD, Phone: [phone] Monet Bergeron MD MICROBIOLOGY - GENERAL ORDERA BLES Final Result [facility] [address] [place] [address], from Last 3 Months or Most Recently Relevant to Health Maintenance Insurance [facility] [place] [id number] [employer]EE Advance Directives * CPR (Attempt to Resuscitate) (Latest Code Status on File) Date Activated Date Inactivated Comments 07/02/2024 6:15 PM 07/04/2024 2:16 PM Question Answer Comments Code Status (Patient has no pulse and is not breathing): CPR (Attempt to Resuscitate) Medical Interventions (Patie nt has pulse or is breathing): Full * CPR (Attempt to Resuscitate) Date Activated Date Inactivated Comments 07/02/2024 8:54 AM 07/02/2024 6:15 PM Question Answer Comments Code Status (Patient has no pulse and is not breathing): CPR (Attempt to Resuscitate) Medical Interventions (Patie nt has pulse or is breathing): Full Support Level Of Support Discussed With: Patient * CPR (Attempt to Resuscitate) Date Activated Date Inactivated Comments 09/25/2020 9:18 PM 09/27/2020 3:50 PM Question Answer Comments Code Status (Patient has no pulse and is not breathing): CPR (Attempt to Resuscitate) Medical Interventions (Patie nt has pulse or is breathing): Full * CPR (Attempt to Resuscitate) Date Activated Date Inactivated Comments 09/24/2020 11:01 PM 09/25/2020 9:18 PM Question Answer Comments Code Status (Patient has no pulse and is not breathing): CPR (Attempt to Resuscitate) Medical Interventions (Patie nt has pulse or is breathing): Full Care Teams Case Investigator Relationship Specialty Start Date End Date Akbar Gates MD [facility] [address] [facility] [address] [place] [address] PCP - General Adolescent Medicine 02/09/20
--- OUTSIDE RECORDS SUMMARY | 2025-01-19 07:40 | XMS_ITS | Patient Health Record ---
Author Organization [facility] Address [address] [place] [address] Care Team Providers Care Creative Art Director Name Role Phone Monet Bergeron Unavailable [phone] Oxana Paiz Unavailable [phone] TyroneRose louis Unavailable [phone] Allergies No Known Allergies Results Component Value Reference Range Flag Notes Soraya/Bacterial Vaginosis/ Trichomonas, RAFAEL (Aptima) Reviewed date:04/21/2024 01:49:09 PM Interpretation:Negative Performing Lab:[facility] [place] CLIA ID [id number], [address], [address], [place] [address], Director - Anrdea Jovel MD Notes/Report: Bacterial Vaginosis Negative Negative The Aptima BV assay is a real time NAAT TMA assay developed for use on the automated Eminence system that detects and discriminates RNA markers from the Lactobacillus species group (L. gasseri, L. crispatus and L. jensenii), Gardnerella vaginalis, and Atopobium vaginae. The Aptima BV assay uses an algorithm for bacterial vaginosis based on detection of target organisms. Soraya species Negative Negative The CV Assay is a real time TMA assay developed for use on the automated Eminence system that detects following Soraya species organisms (C. albicans, C. tropicalis, C. parapsilosis, C. dubliniensis), but the assay does not differentiate among C spp. Soraya glabrata Negative Negative Trichomonas Negative Negative Group B Strep by PCR Reviewed date:06/12/2024 02:36:00 PM Interpretation:Negative Performing Lab:[facility] CLIA ID [id number], [address], [address], [place] [address], Director - Andrea Jovel MD Notes/Report: Group B Strep by PCR (XC) NEGATIVE Negative Method: The FDA-Approved Xpert GBS LB XC Assay is a real-time PCR assay utilizing enriched Clement broth culture of vaginal/rectal swabs after 18-24 hours incubation. This test is intended to determine the Group B Streptococcus (GBS) colonization status of antepartum and intrapartum women. POSITIVE indicates the GBS target nucleic acid is detected-presumptive for GBS colonization. NEGATIVE indicates the GBS target nucleic acid is not detected. False negative result may occur if the number of organisms in the sample is below the limit of detection. CBC (NO DIFF) Reviewed date:03/21/2024 12:37:28 PM Interpretation:Normal Performing Lab: Notes/Report: WBC, CORRECTED 9.61 3.40-10.80 10*3/mm3 ERYTHROCYTES IN BLOOD BY AUTOMATED COUNT 3.58 3.77-5.28 10*6/mm3 L HEMOGLOBIN (G/DL) IN BLOOD 11.8 12.0-15.9 g/dL L HEMATOCRIT (%) BY AUTOMATED COUNT 33.9 34.0-46.6 % L RBC MCV (FL) BY AUTOMATED COUNT 94.7 79.0-97.0 fL RBC MCH (PG) BY AUTOMATED COUNT 33.0 26.6-33.0 pg RBC MCHC (G/DL) BY AUTOMATED COUNT 34.8 31.5-35.7 g/dL RBC RDW (%) BY AUTOMATED COUNT 12.2 12.3-15.4 % L RDW-SD 41.9 37.0-54.0 fl MEAN PLATELET VOLUME (FL) BY AUTOMATED COUNT 9.7 6.0-12.0 fL PLATELETS BY AUTOMATED COUNT 180 140-450 10*3/mm3 Lab specimens r eceived at a [facility].?See result details for the performing location information. GLUCOSE, POST 50 GM GLUCOLA Reviewed date:03/21/2024 12:37:53 PM Interpretation:135, passed Performing Lab: Notes/Report: GESTATIONAL GCT 135 65-139 mg/dL Lab spe cimens received at a [facility].?See result details for the performing location information. TREPONEMA PALLIDUM (SYPHILIS ) SCREENING CASCADE Reviewed date:03/21/2024 12:37:47 PM Interpretation:Negative Performing Lab: Notes/Report: Reactive results will reflex RPR testing. TREPONEMAL AB TOTAL Non-Reactive Non-Reacti Lab specimens received at a [facility].?See result details for the performing location information. CBC WITH AUTO DIFFERENTIAL Reviewed date:06/03/2024 09:02:01 PM Interpretation:Normal for Performing Lab: Notes/Report: WBC, CORRECTED 8.92 3.40-10.80 10*3/mm3 ERYTHROCYTES IN BLOOD BY AUTOMATED COUNT 3.87 3.77-5.28 10*6/mm3 HEMOGLOBIN (G/DL) IN BLOOD 11.6 12.0-15.9 g/dL L HEMATOCRIT (%) BY AUTOMATED COUNT 33.6 34.0-46.6 % L RBC MCV (FL) BY AUTOMATED COUNT 86.8 79.0-97.0 fL RBC MCH (PG) BY AUTOMATED COUNT 30.0 26.6-33.0 pg RBC MCHC (G/DL) BY AUTOMATED COUNT 34.5 31.5-35.7 g/dL RBC RDW (%) BY AUTOMATED COUNT 12.8 12.3-15.4 % RDW-SD 39.4 37.0-54.0 fl MEAN PLATELET VOLUME (FL) BY AUTOMATED COUNT 10.2 6.0-12.0 fL PLATELETS BY AUTOMATED COUNT 191 140-450 10*3/mm3 NEUTROPHILS RELATIVE PERCENT BY AUTOMATED COUNT 72.6 42.7-76.0 % LYMPHOCYTES RELATIVE PERCENT BY AUTOMATED COUNT 19.2 19.6-45.3 % L MONOCYTES RELATIVE PERCENT BY AUTOMATED COUNT 6.5 5.0-12.0 % EOSINOPHILS RELATIVE PERCENT BY AUTOMATED COUNT 1.1 0.3-6.2 % BASOPHILS RELATIVE PERCENT BY AUTOMATED COUNT 0.2 0.0-1.5 % IMMATURE GRANULOCYTES RELATIVE PERCENT 0.4 0.0-0.5 % NEUTROPHILS ABSOLUTE COUNT BY AUTOMATED COUNT 6.47 1.70-7.00 10*3/mm3 LYMPHOCYTES ABSOLUTE COUNT BY AUTOMATED COUNT 1.71 0.70-3.10 10*3/mm3 MONOCYTES ABSOLUTE COUNT BY AUTOMATED COUNT 0.58 0.10-0.90 10*3/mm3 EOSINOPHILS ABSOLUTE COUNT BY AUTOMATED COUNT 0.10 0.00-0.40 10*3/mm3 BASOPHILS ABSOLUTE COUNT BY AUTOMATED COUNT 0.02 0.00-0.20 10*3/mm3 IMMATURE GRANULOCYTES ABSOLUTE COUNT 0.04 0.00-0.05 10*3/mm3 NRBC (PER 100 WBCS) 0.0 0.0-0.2 /100 WBC Lab specimens received at a [facility].?See result details for the performing location information. PROTEIN / CREATININE RATIO, URINE Reviewed date:06/03/2024 09:01:41 PM Interpretation:Normal- 0.129 Performing Lab: Notes/Report: PROT/CREAT RATIO, UR 129.9 0.0-200.0 m g/G Crea CREATININE URINE 40.8 PROTEIN URINE 5.3 Lab specime ns received at a [facility].?See result details for the performing location information. ALT Reviewed date:06/03/2024 09:06:12 PM Interpretation:Normal- 8 Performing Lab: Notes/Report: ALT (SGPT) 8 1-33 U/L Lab specimens received at a [facility].?See result details for the performing location information. AST Reviewed date:06/03/2024 09:02:30 PM Interpretation:Normal- 18 Performing Lab: Notes/Report: AST (SGOT) 18 1-32 U/L Lab specimens received at a [facility].?See result details for the performing location information. URIC ACID Reviewed date:06/03/2024 09:02:23 PM Interpretation:Normal- 4.3 Performing Lab: Notes/Report: URIC ACID 4.3 2.4-5.7 mg/dL Lab specime ns received at a [facility].?See result details for the performing location information. LACTATE DEHYDROGENASE Reviewed date:06/03/2024 09:02:12 PM Interpretation:Normal- 173 Performing Lab: Notes/Report: LACTATE DEHYDROGENASE 173 135-214 U/L La b specimens received at a [facility].?See result details for the performing location information. CBC (NO DIFF) Reviewed date:07/02/2024 09:20:12 AM Interpretation: Performing Lab: Notes/Report: WBC, CORRECTED 9.59 3.40-10.80 10*3/mm3 ERYTHROCYTES IN BLOOD BY AUTOMATED COUNT 4.17 3.77-5.28 10*6/mm3 HEMOGLOBIN (G/DL) IN BLOOD 11.8 12.0-15.9 g/dL L HEMATOCRIT (%) BY AUTOMATED COUNT 35.8 34.0-46.6 % RBC MCV (FL) BY AUTOMATED COUNT 85.9 79.0-97.0 fL RBC MCH (PG) BY AUTOMATED COUNT 28.3 26.6-33.0 pg RBC MCHC (G/DL) BY AUTOMATED COUNT 33.0 31.5-35.7 g/dL RBC RDW (%) BY AUTOMATED COUNT 14.3 12.3-15.4 % RDW-SD 44.4 37.0-54.0 fl MEAN PLATELET VOLUME (FL) BY AUTOMATED COUNT 11.1 6.0-12.0 fL PLATELETS BY AUTOMATED COUNT 177 140-450 10*3/mm3 Lab specimens r eceived at a [facility].?See result details for the performing location information. TYPE AND SCREEN Reviewed date:07/02/2024 10:02:34 AM Interpretation: Performing Lab: Notes/Report: ABO TYPE O RH TYPE Positive ANTIBODY SCREEN Negative T&S EXPIRATION DATE 07/05/2024 11:59:59 PM Lab specimens receiv ed at a [facility].?See result details for the performing location information. *US OB Detailed Anatomy Reviewed date:02/19/2024 04:06:04 PM Interpretation: Performing Lab: Notes/Report: [facility] Transabdominal Obstetric Study Report Name: ELIS ESPITIA Accession/Encounter No:[id number] : 1995 Age: 28 Gender: F Study Date: Feb 19, 2024 Study Time: 12:49 PM Reading Group: Monet Bergeron MD Referring Group: Monet Bergeron MD Ordering Phys: Monet Bergeron MD Performing User: Paula Neil RDMS Equipment: Affiniti 30 Study Quality: Good Indications: anatomy scan Low risk NIPT An anatomy ultrasound was performed. General Information Trimester: 2nd/3rd trimester Gestations: 1 : Intrauterine Gestational Age (Best) Best: 20w 0d Determined by: LMP UMAIR: 2024-07-08 Gestational Age (Prev Study) Previous US: 20w 0d Previous Study: Nov 2023 by LMP UMAIR: 2024-07-08 Gestational Age (LMP) LMP: 20w 0d First Day of LMP: 2023-10-02 UMAIR: 2024-07-08 Gestational Age (Current US) Current US: 19w 5d UMAIR: 2024-07-10 General Evaluation gender: F cardiac activity: Present Presentation/Position: Cephalic Placental cord insert: Centrally located Placental location: Anterior Biometry (Fetus A) EFW: 313.3g 11 oz 46% ANA-76 HR: 153 bpm BPD: 4.37 cm 19w 2d 19% HADLOCK-84 HC: 16.8 cm 19w 3d 19% HADLOCK-84 AC: 14.32 cm19w 5d 33% HADLOCK-84 FL: 3.23 cm 20w 0d 45% HADLOCK-84 FL/HC: 0.19 HC/AC: 1.17 FL/BPD: 0.74 FL/AC: 0.23 Cisterna magna: 5.1 mm Lateral vents: 6.7 mm TCD: 1.94 cm 19w 6d 20% Nuchal fold: 4.29 mm Anatomy (Fetus A) Midline falx: Normal Cisterna magna: Normal Choroid plexus: Normal Lateral ventricles: Normal Cerebellum: Normal CSP: Normal Orbits: Normal Face: Normal Profile: Normal Nasal bone: Normal Nose/Lips: Normal Right upper extr: Normal Right lower extr: Normal Left upper extr: Normal Left lower extr: Normal 4-chamber heart: Normal Aortic arch: Normal LVOT: Normal RVOT: Normal Cardiac rhythm: Normal 3VTV: Normal 3VV: Normal Spine: Normal Stomach: Normal Diaphragm: Normal Bowel: Normal Right kidney: Normal Left kidney: Normal Bladder: Normal Abdom. cord insert: Normal Cord vessels: 3 vessel cord Findings: Maternal Anatomy: Cervix is 4.04 cm long. Conclusions: Holden IUP noted with cardiac activity. No anomalies noted at this time. growth is consistent with dating. Fluid appears normal Approved By: Monet Bergeron MD Approved at: February 19, 2024 03:34 PM EST Electronically Signed on Studycast ELIS KINCAIDNZEN 2024-02-19 Page 1 of 1 [facility] - , [facility], [place], [facility] TREPONEMA PALLIDUM (SYPHILIS ) SCREENING CASCADE Reviewed date:07/02/2024 01:15:25 PM Interpretation: Performing Lab: Notes/Report: Reactive results will reflex RPR testing. TREPONEMAL AB TOTAL Non-Reactive Non-Reacti Lab specimens received at a [facility].?See result details for the performing location information. CBC WITH AUTO DIFFERENTIAL Reviewed date:07/04/2024 08:43:44 AM Interpretation: Performing Lab: Notes/Report: Day 1 WBC, CORRECTED 10.86 3.40-10.80 10*3/mm3 H ERYTHROCYTES IN BLOOD BY AUTOMATED COUNT 3.62 3.77-5.28 10*6/mm3 L HEMOGLOBIN (G/DL) IN BLOOD 9.9 12.0-15.9 g/dL L HEMATOCRIT (%) BY AUTOMATED COUNT 32.0 34.0-46.6 % L RBC MCV (FL) BY AUTOMATED COUNT 88.4 79.0-97.0 fL RBC MCH (PG) BY AUTOMATED COUNT 27.3 26.6-33.0 pg RBC MCHC (G/DL) BY AUTOMATED COUNT 30.9 31.5-35.7 g/dL L RBC RDW (%) BY AUTOMATED COUNT 14.3 12.3-15.4 % RDW-SD 45.8 37.0-54.0 fl MEAN PLATELET VOLUME (FL) BY AUTOMATED COUNT 11.2 6.0-12.0 fL PLATELETS BY AUTOMATED COUNT 149 140-450 10*3/mm3 NEUTROPHILS RELATIVE PERCENT BY AUTOMATED COUNT 74.0 42.7-76.0 % LYMPHOCYTES RELATIVE PERCENT BY AUTOMATED COUNT 17.2 19.6-45.3 % L MONOCYTES RELATIVE PERCENT BY AUTOMATED COUNT 5.9 5.0-12.0 % EOSINOPHILS RELATIVE PERCENT BY AUTOMATED COUNT 2.0 0.3-6.2 % BASOPHILS RELATIVE PERCENT BY AUTOMATED COUNT 0.2 0.0-1.5 % IMMATURE GRANULOCYTES RELATIVE PERCENT 0.7 0.0-0.5 % H NEUTROPHILS ABSOLUTE COUNT BY AUTOMATED COUNT 8.03 1.70-7.00 10*3/mm3 H LYMPHOCYTES ABSOLUTE COUNT BY AUTOMATED COUNT 1.87 0.70-3.10 10*3/mm3 MONOCYTES ABSOLUTE COUNT BY AUTOMATED COUNT 0.64 0.10-0.90 10*3/mm3 EOSINOPHILS ABSOLUTE COUNT BY AUTOMATED COUNT 0.22 0.00-0.40 10*3/mm3 BASOPHILS ABSOLUTE COUNT BY AUTOMATED COUNT 0.02 0.00-0.20 10*3/mm3 IMMATURE GRANULOCYTES ABSOLUTE COUNT 0.08 0.00-0.05 10*3/mm3 H NRBC (PER 100 WBCS) 0.0 0.0-0.2 /100 WBC Lab specimens received at a [facility].?See result details for the performing location information. CBC (NO DIFF) Reviewed date:05/14/2024 04:25:14 PM Interpretation:mild anemia 33.0 Performing Lab: Notes/Report: WBC, CORRECTED 10.37 3.40-10.80 10*3/mm3 ERYTHROCYTES IN BLOOD BY AUTOMATED COUNT 3.63 3.77-5.28 10*6/mm3 L HEMOGLOBIN (G/DL) IN BLOOD 11.1 12.0-15.9 g/dL L HEMATOCRIT (%) BY AUTOMATED COUNT 33.0 34.0-46.6 % L RBC MCV (FL) BY AUTOMATED COUNT 90.9 79.0-97.0 fL RBC MCH (PG) BY AUTOMATED COUNT 30.6 26.6-33.0 pg RBC MCHC (G/DL) BY AUTOMATED COUNT 33.6 31.5-35.7 g/dL RBC RDW (%) BY AUTOMATED COUNT 12.0 12.3-15.4 % L RDW-SD 39.8 37.0-54.0 fl MEAN PLATELET VOLUME (FL) BY AUTOMATED COUNT 9.9 6.0-12.0 fL PLATELETS BY AUTOMATED COUNT 194 140-450 10*3/mm3 Lab specimens r eceived at a [facility].?See result details for the performing location information. BLOOD GAS, ARTERIAL, CORD Reviewed date:07/02/2024 04:14:30 PM Interpretation: Performing Lab: Notes/Report: SITE Umbilical PH CORD ARTERIAL 7.15 7.22-7.30 pH Units LL 85 Value below critical limit PCO2 CORD ARTERIAL 59.1 43.3-54.9 mmHg H PO2 CORD ARTERIAL 29.6 11.5-43.3 mmHg HCO3 CORD ARTERIAL 20.4 16.9-20.5 mmol/L BASE EXCESS ARTERIAL CORD -9.4 0.0-2.0 mmol/L L O2 SAT CORD ARTERIAL 52.8 TOTAL HEMOGLOBIN, BLOOD GAS 16.6 14-18 g/dL CO2 CONTENT 22.2 22-33 mmol/L TEMPERATURE 37.0 MODALITY Room Air FIO2 21 TOTAL RATE 0 PIP 0 Meter: [id number] Licensed Real Estate Broker: [id number] IPAP 0 EPAP 0 NOTE 0 NOTIFIED EPLON Macedo RN NOTIFIED BY [id number] NOTIFIED TIME 07/02/2024 16:06 Lab nola nguyen received at a [facility].?See result details for the performing location information. BLOOD GAS, VENOUS, CORD Reviewed date:07/02/2024 04:14:46 PM Interpretation: Performing Lab: Notes/Report: SITE Umbilical PH CORD VENOUS 7.236 7.310-7.37 pH Units L PCO2 CORD VENOUS 47.8 28.0-40.0 mm Hg H PO2 CORD VENOUS 27.7 21.0-31.0 mm Hg HCO3 CORD VENOUS 20.3 18.6-21.4 mmol/L BASE EXCESS CORD VENOUS -7.4 0.0-2.0 mmol/L L O2 SAT CORD VENOUS 48.5 TOTAL HEMOGLOBIN, BLOOD GAS 15.5 14-18 g/dL CO2 CONTENT 21.8 22-33 mmol/L L TEMPERATURE 37.0 MODALITY Room Air FIO2 21 TOTAL RATE 0 PIP 0 Meter: [id number] Licensed Real Estate Broker: [id number] IPAP 0 EPAP 0 Reason For Referral Reason PFPT Diagnosis 1 Pelvic pain in femal e (R10.2) Diagnosis 2 Encounter for superv ision of other normal , third trimester (Z34.83) Referral Organization [facility] Referring Provider First Name Monet Referring Provider Last Name Elyssa Referring Provider Speciality OB - Gynec ology General Notes Letha Mena 04/30 11:46:47 AM >Per pt request , faxed order to her friend whos a pt , fax [phone] Referral Priority Routine Medications Medication SIG (Take, Route, Frequency, Duration) Notes Start Date End Date Status 05/05 1-20 MG-MCG Tablet 1 tablet Orally Once a day; Duration: 84 days 08/15/2024 Active busPIRone HCl 15 MG Tablet Oral; Duration: 90 Days Active Colace 100 MG Capsule 1 capsule as neede d Orally Once a day Active Fioricet 50-300-40 MG Capsule 1 capsule as needed Orally every 4 hrs as needed; Duration: 5 days 06/03/2024 Active Pantoprazole Sodium 40 MG Tablet Delayed Release 1 tablet1 hour before morning meal Orally Once a day; Duration: 30 days 05/16/2024 Active (w/Iron & FA) 27-0.8 MG Tablet 1 tablet Orally Once a day Active Pristiq Active Social History Tobacco Use: Social History Observation Description Date Details (start date - stop date) Never Smoker NA - NA Sex Assigned At : Social History Observation Description Sex Assigned At Female Social History Drugs/Alcohol: Social Info Question Answer Notes Drugs Have you used drugs other than those for medical reasons in the past 12 months? No Alcohol Screen Did you have a drink containing alcohol in the past year? No Points 0 Interpretation Negative Tobacco Use: Social Info Question Answer Notes Tobacco Use/Smoking Are you a nonsmoker Additional Details Category Social Info Options Details Miscellaneous: Sexually active: SEXUAL AC TIV: Current Migrated Social History Drug/Alcohol: den ies/denies Tobacco Use: denies Vital Signs Blood pressure diastolic 60 mm Hg 08/15/2024 Height 66 in 08/15/2024 Blood pressure systolic 112 mm Hg 08/15/2024 Weight 207.8 lbs 08/15/2024 BMI 33.54 kg/m2 08/15/2024 Encounters Encounter Location Date Provider Diagnosis [facility] 1720 COUNTS INCLUDE 234 BEDS AT THE [facility] [address] [place] [address] 02/22/2024 Monet Bergeron [facility] [address] [place] [address] 05/01/2024 Monet Bergeron [facility] 1720 COUNTS INCLUDE 234 BEDS AT THE [facility] [address] [place] [address] 05/14/2024 Monet Bergeron Acute gastritis with hemorrhage, unspecified gastritis type K29.01 [facility] [address] [place] [address] 05/15/2024 Monet Bergeron [facility] 1720 COUNTS INCLUDE 234 BEDS AT THE [facility] [address] [place] [address] 05/16/2024 Monet Bergeron [facility] [address] [place] [address] 05/19/2024 Monet Bergeron [facility] 1720 COUNTS INCLUDE 234 BEDS AT THE [facility] [address] [place] [address] 05/19/2024 Monet Bergeron [facility] 1720 COUNTS INCLUDE 234 BEDS AT THE [facility] [address] [place] [address] 05/26/2024 Monet Bergeron [facility] 1720 COUNTS INCLUDE 234 BEDS AT THE [facility] [address] [place] [address] 06/02/2024 Monet Bergeron [facility] 1720 COUNTS INCLUDE 234 BEDS AT THE [facility] [address] [place] [address] 07/16/2024 Monet Bergeron Encounter for routin e follow-up Z39.2 [facility] [address] [facility] [address] [place] [address] 02/19/2024 Monet Bergeron Supervision of other normal , second trimester Z34.82 [facility] [address] [place] [address] 07/02/2024 Monet Bergeron [facility] 1720 COUNTS INCLUDE 234 BEDS AT THE [facility] [address] [place] [address] 08/15/2024 Monet Bergeron Encounter for screening for maternal depression Z13.32 and Routine follow-up Z39.2 [facility] 1720 COUNTS INCLUDE 234 BEDS AT THE [facility] [address] [place] [address] 01/21/2024 Monet Bergeron 15 weeks gestation o f Z3A.15 and Supervision of other normal , second trimester Z34.82 [facility] [address] [facility] [address] [place] [address] 02/19/2024 Monet Bergeron Supervision of other normal , second trimester Z34.82 ; 20 weeks gestation of Z3A.20 and Acute gastritis with hemorrhage, unspecified gastritis type K29.01 [facility] 1720 COUNTS INCLUDE 234 BEDS AT THE [facility] [address] [place] [address] 03/20/2024 Iniko Tyrone Second trimester Z34.92 and 24 weeks gestation of Z3A.24 [facility] [address] [facility] [address] [place] [address] 04/15/2024 Monet Bergeron Encounter for supervision of other normal , third trimester Z34.83 ; 28 weeks gestation of Z3A.28 and Vaginal discharge N89.8 [facility] [address] [facility] [address] [place] [address] 04/29/2024 Monet Bergeron Encounter for supervision of other normal , third trimester Z34.83 ; 30 weeks gestation of Z3A.30 and Pelvic pain in female R10.2 [facility] [address] [place] [address] 05/13/2024 Monet Bergeron 32 weeks gestation o f Z3A.32 and Encounter for supervision of other normal , third trimester Z34.83 [facility] 1720 COUNTS INCLUDE 234 BEDS AT THE [facility] [address] [place] [address] 05/26/2024 Monet Bergeron Encounter for supervision of other normal , third trimester Z34.83 and 34 weeks gestation of Z3A.34 [facility] 1720 COUNTS INCLUDE 234 BEDS AT THE [facility] [address] [place] [address] 06/03/2024 Interesita Hansen 35 weeks gestation o f Z3A.35 ; Third trimester Z34.93 and Acute nonintractable headache, unspecified headache type R51.9 [facility] [address] [facility] [address] [place] [address] 06/10/2024 Oxana Paiz 36 weeks gestation o f Z3A.36 and Encounter for supervision of other normal , third trimester Z34.83 [facility] [address] [facility] [address] [place] [address] 06/20/2024 Monet Bergeron Encounter for supervision of other normal , third trimester Z34.83 ; 37 weeks gestation of Z3A.37 and Decreased movements in third trimester, single or unspecified fetus O36.8130 [facility] 1720 COUNTS INCLUDE 234 BEDS AT THE [facility] [address] [place] [address] 06/25/2024 Monet Bergeron Encounter for supervision of other normal , third trimester Z34.83 and 38 weeks gestation of Z3A.38 Assessments Encounter Date Diagnosis (ICD Code) Assessment Notes Treatment Notes Treatment Clinical Notes Section Notes 01/21/2024 15 weeks gestation of (ICD-10 - Z3A.15) 01/21/2024 Supervision of other normal , second trimester (ICD-10 - Z34.82) 02/19/2024 Supervision of other normal , second trimester (ICD-10 - Z34.82) 02/19/2024 20 weeks gestation of (ICD-10 - Z3A.20) 02/19/2024 Supervision of other normal , second trimester (ICD-10 - Z34.82) 04/29/2024 30 weeks gestation of (ICD-10 - Z3A.30) 04/29/2024 Encounter for supervision of other normal , third trimester (ICD-10 - Z34.83) 05/13/2024 32 weeks gestation of (ICD-10 - Z3A.32) 05/13/2024 Encounter for supervision of other normal , third trimester (ICD-10 - Z34.83) 06/20/2024 37 weeks gestation of (ICD-10 - Z3A.37) 06/20/2024 Encounter for supervision of other normal , third trimester (ICD-10 - Z34.83) 06/25/2024 38 weeks gestation of (ICD-10 - Z3A.38) 06/25/2024 Encounter for supervision of other normal , third trimester (ICD-10 - Z34.83) 05/26/2024 34 weeks gestation of (ICD-10 - Z3A.34) 05/26/2024 Encounter for supervision of other normal , third trimester (ICD-10 - Z34.83) 06/10/2024 36 weeks gestation of (ICD-10 - Z3A.36) 06/10/2024 Encounter for supervision of other normal , third trimester (ICD-10 - Z34.83) 03/20/2024 24 weeks gestation of (ICD-10 - Z3A.24) 03/20/2024 Second trimester (ICD-10 - Z34.92) 05/14/2024 Acute gastritis with hemorrhage, unspecified gastritis type (ICD-10 - K29.01) 08/15/2024 Routine follow-up (ICD-10 - Z39.2) Normal 6 wk PP visit. Discussed contraception, feeding, mood and return to normal activities. Discussed expectations for return of cycles. RTC for annual or prn Patient was counseled on all options of contraception including GALI, POP, Dep Provera and LARC methods. Possible side effects and proper use was reviewed. rx for GALI. 08/15/2024 Encounter for screening for maternal depression (ICD-10 - Z13.32) Normal 6 wk PP visit. Discussed contraception, feeding, mood and return to normal activities. Discussed expectations for return of cycles. RTC for annual or prn Patient was counseled on all options of contraception including GALI, POP, Dep Provera and LARC methods. Possible side effects and proper use was reviewed. rx for GALI. 06/03/2024 35 weeks gestation of (ICD-10 - Z3A.35) 06/03/2024 Third trimester (ICD-10 - Z34.93) 04/15/2024 28 weeks gestation of (ICD-10 - Z3A.28) 04/15/2024 Encounter for supervision of other normal , third trimester (ICD-10 - Z34.83) 07/16/2024 Encounter for routine follow-up (ICD-10 - Z39.2) * Reviewed normal care and call parameters. * Routine post- visit scheduled. * Visit scheduled to address immediate concerns/issues identified today. * Referral to support. * Reviewed glucose screening and scheduled. 04/29/2024 Pelvic pain in female (ICD-10 - R10.2) 06/03/2024 Acute nonintractable headache, unspecified headache type (ICD-10 - R51.9) 06/20/2024 Decreased movements in third trimester, single or unspecified fetus (ICD-10 - O36.8130) 02/19/2024 Acute gastritis with hemorrhage, unspecified gastritis type (ICD-10 - K29.01) 04/15/2024 Vaginal discharge (ICD-10 - N89.8) Plan Of Treatment Next Appt Details Provider Name:Viki Kenneth, 05/04/2025 01:45:00 PM, [address], [address], [place], [address], Insurance Providers Payer Name Payer Address Payer Phone Subscriber Number Group Number Insured Name Patient Relationship to Insured Coverage Start Date Coverage End Date Oswald BRAVOO [address] [place] [address] [id number] Elis Espitia Self - patient is the insured Medical (General) History Medical History History ICD Code Anxiety depression Acute gastritis with hemorrhage, unspeci fied gastritis type K29.01 Surgical History Surgery Date(Month/Year) L Knee Arthroscopy '11 R Knee Arthroscopy '09 Hospitalization History Reason Date(Month/Year) L&D
--- OUTSIDE RECORDS SUMMARY | 2025-01-19 07:40 | XMS_ITS | Data Portability ---
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 Plan of Treatment Reminders Order Date Submit Date Provider Last Modified By Organization Details Last Modified Time Details Appointments None recorded. Lab None recorded. Referral None recorded. Procedures None recorded. Surgeries None recorded. Imaging None recorded. Medication Orders azelaic acid 15 % topical gel 2023 024 [facility], [address] [place] [address] E Nino Achary[place]Harjeet [place], [id number], 4 16:44:10 doxycycline hyclate 100 mg capsule 2023 024 [email or web address] 2 [facility], [address] [place] [address] E Nino Harjeet [place], [id number], 5 14:05:12 Kenalog 10 mg/mL suspension for injection 2023 [facility], [address] [place] [address] E Harjeet [place], [id number], 4 16:54:48 clindamycin phosphate 1 % topical swab 2023 024 [facility], [address] [place] [address] E Harjeet [place], [id number], 4 14:58:34 Medrol (Wesley) 4 mg tablets in a dose pack 2023 024 [email or web address] 2 [facility], [facility] [address] Harjeet [place], [id number], 5 14:05:00 Patient TargetsNo targets recorded. Patient Instructions Encounter Date Encounter Id Patient Instructions Last Modified By Organization Details Last Modified Time 06/04/2023 [id number] Reviewed and discussed with the patient her recent left knee MRI which does not reveal any ligamentous or meniscal injury. Prescription for a Medrol Dosepack was sent to the patient's pharmacy. Hold surgery Hold CSI Hold bracing F/U PRN [email or web address] Not available 06/04/2023 14:25:47 Reason for Referral None Reported. Results Created Date Observation Date Name Description Value Unit Range Abnormal Flag Note LastModifiedBy Organization Detail LastModifiedTime 05/25/19 24 05/25/2023 XR, knee, 4 [facility] [address] [place] [address] Bobby cisse Name: ELIS cisse : [phone] Bobby cisse Orderi ng Provid er: CHEO Peralta EXAM DATE: 2023 EXAM: XR LT KNEE COMPLE TE, 4 OR MORE VWS COMPAR DANNI: MRI dated 020 HISTOR Y: Left knee pain. FINDIN GS: The bones of the left knee are normal in alignm ent. No fractu re is identi fied. There is no degene rative change . Contra latera l knee: Normal in appear ance. IMPRES RUSS: 1. The left knee is normal in appear ance. Interp reted By: Adriel oneal MD Electr onical ly Signed By: Adriel oneal MD on 05/25/19 24 4:02 PM [email or web address] [facility] [address], [place], [address], 05/25/2023 18:17:12 05/31/19 24 05/31/2023 MRI, knee, w/[facility] [address] [facility] [address] [facility] [place] [address] Bobby cisse Name: ELIS cisse : [phone] Bobby cisse Orderi ng Provid er: CHEO OSORIO S EXAM DATE: 2023 EXAM: MR LT KNEE WITHOU T CONTRA ST HISTOR Y: 28-yea r-old female with left knee pain. The patien t has had remote knee surger y. COMPAR DANNI: Radiog raph dated 05/25/19 24 and MRI dated 020. FINDIN GS: The ACL is normal in appear ance. The PCL is also normal in appear ance. The latera l collat eral ligame nt comple x is intact . The medial collat eral ligame nt comple x appear s normal . The pito ceps tendon appear s normal . The patell ar tendon is normal in appear ance. There is border line patell a antwon. There is latera l sublux ation of the patell a. There is edema grain blender ior to the proxim al patell ar tendon and anteri or to the latera l femora l condyl e. No menisc al tear is identi fied. The latera l and medial menisc i are normal in appear ance. There is no focal cartil age defect . There is mild thinni ng of the articu lar cartil age along the latera l facet of the patell a. There is no margin al osteop hytic spurri ng. There is a small joint effusi on. The muscle s about the knee are normal in appear ance. IMPRES RUSS: 1. There is border line patell a antwon and findin gs of patell ofemor al instab ility. 2. There is a small joint effusi on in the left knee. 3. No menisc al tear or acute ligame ntous injury is identi fied. Interp reted By: Adriel oneal MD Electr onical ly Signed By: Adriel oneal MD on 024 11:24 AM [email or web address] [facility] [address] [place] [address], [id number], 05/31/2023 13:12:40 Result Notes None recorded. Problems No Known Problems Procedures Surgical History Date Name Laterality Status Provider Name and Address Organization Details Recorded Time 04/14/20 24 Destruction BN Lesions completed Ben Roman [facility] 04/14/2024 13:56:09 12/03/19 24 DAK - [facility] 10:46:30 12/03/19 24 DAK - I&D single/simple completed [facility] 12/03/2023 10:41:40 08/09/19 24 DAK - Intralesional Injection completed Leticia Mendoza [facility] 08/09/2023 16:09:53 Imaging Results None recorded. Procedure Notes None recorded. Medical Equipment None Reported. Allergies No known drug allergies Medications Name Sig Start Date Stop Date Status Note LastModified by Organization Details LastModified Time doxycyclin e hyclate 100 mg capsule Take 1 capsule twice a day by oral route. 2023 active d/c Not Available Not Available Not Avai lable Multiple Vitamin capsule active Medicatio n Descripti on: multivita min; Route:ora l; refills:0 Not Available Not Available Not Available Medrol (Wesley) 4 mg tablets in a dose pack as directed 2023 active d/c Not Available Not Available Not Avai lable Kenalog 10 mg/mL suspension for injection inject acne cysts as needed 2023 active Not Available Not Available Not Avai lable clindamyci n phosphate 1 % topical swab APPLY A THIN LAYER TO THE AFFECTED AREA(S) BY TOPICAL ROUTE 2 TIMES PER DAY 2023 active Not Available Not Available Not Avai lable buspirone 15 mg tablet Daily active Frequency : daily;Med ication Descripti on: buspirone ; Dosage:1; Route:ora l; refills:0 ; Quantity: 30 tablet Not Available Not Available Not Available azelaic acid 15 % topical gel APPLY A THIN LAYER TO THE AFFECTED AREA(S) BY TOPICAL ROUTE 2 TIMES PER DAY 2023 active Not Available Not Available Not Avai lable Effexor Daily active d/c Not Available Not Avail able Not Available Clindamyci n active Medicatio n Descripti on: clindamyc in; refills:0 Not Available Not Available Not Available Pristiq 100 mg tablet,ext ended release Take 1 tablet every day by oral route. active Not Available Not Available No t Available Vitals Date Recorded Body height Body mass index (BMI) Body weight Pain severity - 0-10 verbal numeric rating [Score] - Reported Provider Name and Address Organization Details Last Updated DateTime 06/04/2023 167.64 cm 30.7 kg/m2 14122.55 g 4 [facility] 06/04/2023 13:52:48 Social History Question Answer Notes LastModified by Organizat ion Details LastModified Time Tobacco Smoking Status [facility] 05/26/2019 09:00:41 Sunscreen Use? Yes [email or web address] Informatio n not available 12/03/2023 Tanning Bed Use No Informati on not available 12/03/2023 Are You Or Trying To Become ? No [email or web address] Information not available 10/06/2024 Are You On Control? No [email or web address] Information not available 12/03/2023 Are You ? No [email or web address] Information not available 10/06/2024 What Was The Date Of Your Most Recent Tobacco Screening? 10/06/2024 [email or web address] Information not available 10/06/2024 Sex: Female Functional Status Question Answer Note LastModified by Organization D etails LastModified Time What is your level of alcohol consumption? None Information not available 12/03/2023 Mental Status None recorded. Family History Nothing Reported. Medical History Condition Response Diabetes N Bleeding Disorder N Blood Thinners N Seizures/Epilepsy N Heart Conditions N Sleep Apnea N Blood Clot N Anesthesia Complications N Heart Attack (AK) N Cancer N Stroke N Asthma N COPD N Gynecological HistoryNo gynecological history recorded. Obstetrics History GPAL:G 0 P 0 0 0 0 Past Encounters Encounter ID Performer Location Encounter Start Date Encounter Closed Date Diagnosis/Indication Diagnosis SNOMED-CT Code Diagnosis ICD10 Code Diagnosis IMO Codes Diagnosis Note [id number] COLLETTE MEDRANO [facility] [address] [place] [address] 05/26/2019 08:21:57 05/26/2019 09:46:19 Pain in left knee 0528518631 43501 M25.562 Sprain of medial collateral ligament of knee 12604334 S83.412A Tear of me dial meniscus of knee 152718388 S83.242A [id number] COLLETTE MEDRANO [facility] [address] [address] 07/01/2019 10:34:57 07/01/2019 12:56:22 Pain in left knee 1315406160 67619 M25.562 [id number] MAIRA BROWNING PA-C [facility] [address] [place] [address] 05/25/2023 15:45:08 05/25/2023 17:05:17 Complete tear, knee, anterior cruciate ligament 673485846 S83.512A Given her feelings of instabilit y along with significan t laxity on physical exam and failure to improve with other conservati ve measures to think it is warranted for MRI of the left knee without contrast. Patient is fairly active in her free time enjoying classes like HIT classes, dancing, Haley for her activities so if she does have ACL tear she would be a candidate for surgery. Would like to get all the informatio n in front of us, have her follow-up with Dr. Medrano after MRI of the left knee without contrast to discuss definitive treatment options. Okay for weightbear ing, activities as tolerated in the interim. Showed her hinged knee brace she can buy over-the-c ounter which may help provide a little bit more lateral stability in the interim. Ice, anti-infla mmatories for any residual symptoms. [id number] COLLETTE MEDRANO [facility] [address] [address] 06/04/2023 13:13:36 06/04/2023 14:36:10 Chondromalacia of left patella 6508859718 94233 M22.42 [id number] [place] [address] 08/09/2023 15:29:57 08/09/2023 16:16:03 Acne vulgaris 00872780 L70.0 R52 The nature of the diagnosis was discussed. Will tx with ILK today since painful.Pt is completing 10 day course of doxy from PCP.Pt cannot take spironolac tone due to headaches. Pt is not currently on control anymore- working towards trying to get possibly in the near future.Rx prescribed doxycyclin e 100mg, take 1 BID PO. SE reviewed. Take with food and a full glass of water. Do not lay down for 1 hour after taking. Increase sun protection when exposed.Rx prescribed clindamyci n 1% topical swabs BID to AA. SE reviewed.P t currently using ISclinical cleansing complex cleanser and CeraVe 2% SA gel.Pt to call if flares/wor sens. Epidermoid cyst [id number] 6 L72.0 See above: ILK and Doxy [id number] ELISHA HERNANDEZ [address] [address] 12/03/2023 09:44:10 12/03/2023 11:07:48 Acne vulgaris 00773273 L70.0 R52 The nature of the diagnosis was discussed. Cont. Rx Clindamyci n 1% topical swab BID --- since Rx clindamyci n is category B.Rx prescribed for Rx Azelaic acid 15% topical gel BID. SE reviewed. Pt to call if not covered with insurance. OK to use OTC 10% Azelaic acid instead. Cyst of skin 513532810 L 72.0 R52 The nature of the diagnosis was discussed. Since painful, will I&D the lesion and inject with ILK. [id number] ELISHA HERNANDEZ [address] [address] 10/06/2024 13:38:27 10/06/2024 16:18:14 Acne vulgaris 47660147 L70.0 801 The nature of the diagnosis was discussed. Pt to continue Rx Clindamyci n 1% swabs and Azelaic acid 15% topical gel.Pt to call if she needs rfs. Keratosis pilaris 805935 5 L85.8 31003 The nature of the diagnosis was explained. Rec OTC Cerave SA for rough and bumpy skin. Multiple b enign melanocytic nevi 338385078 D22.5 L81.4 D18.01 L82.1 The benign nature of keratoses and lentigines was discussed with the patient.Everett n protection with SPF 30 broad spectrum sunscreen and protective gear discussed. Look for physical shannon sunscreens with at least SPF 30 containing zinc oxide or titanium dioxide as active ingredient .Recommend monthly self examinatio ns and yearly full skin examinatio n with a dermatolog y provider.R ecommend yearly eye exam.Recom mend OTC Vitamin D supplement .Patient instructed to call if any suspicious lesions are noted. Melanocyti c nevus of trunk 378221970 D22.5 8816579 The etiology of lesion(s) discussed. Will continue to monitor for any changes. [id number] ELISHA HERNANDEZ [address] [address] 04/14/2024 13:44:09 04/14/2024 13:59:40 Seborrheic keratosis 019794867 L82.1 The nature of the diagnosis was discussed. Benign appearing lesions.Si nce bothersome , will tx w/ LN2 (No charge).Le sions tx'ed today may persist. Health Concerns Section Related Observation LastModified by Organization Detai ls LastModified Time None Recorded Concern Status LastModified by Organization Details LastModified Time None Recorded Advance Directives Directive None Recorded Payers Insurance Date Sequence Insurance Name Policy Number Policy Leiva Covered Member ID Leiva Member ID Guarantor Name 10/04/2024 1 [place] LUDWIN GONZ[place] [id number] 1 Elis Ferrari [id number] Elis Ferrari 05/25/2023 [facility] CLAIMS DEPARTMENT [facility] Elis Ferrari Notes Date Note Type Note Provider Name and Address Organization Details Recorded Time 06/04/2023 text/html Patient comes in today for FU Left Knee.Patient states they are same than last visit. PAIN:Pain Rating: Current 4,Back for MRI results today. Continues to have feelings of instability. X-RAY: ,MRI: Yes, LC 05/31/2023: Left knee MRI was reviewed and discussed by me with the patient in detail today. Images reveal: Ax 11: plica Ax 10-11: lateral patella chondromalacia and compression ACL and PCL are intact Non-Operative TreatmentsPT: ____x/wk for ___wksInjection: Date:NSAIDS:Medrol:Medi cation:DME:Activity Modification: COL[place]TT[place]O [place] [address] [place] [address], [phone], [facility] 06/12/2023 12:40:33 08/09/2023 text/html ROS as noted in the HPI I have 2 cyctic pimples - Nose and chinDuration: almost 2 weeksTx: noneReports: they need injected ELISHA HERNANDEZ [address] [place], [address], [facility] 08/09/2023 17:09:14 12/03/2023 text/html ROS as noted in the HPI acne3 month f/udoxy, clindamycinstopped medication due to pregnancyspot behind L ear1 weektx: noneReports: painful ELISHA HERNANDEZ [address] [place], [address], [facility] 12/03/2023 12:54:22 04/14/2024 text/html ROS as noted in the HPI I have a spot.location: left cheekreports: My thinks it is concerning so I told him I would get it looked at. pt declined FBSE ELISHA HERNANDEZ [address] [place], [address], [facility] 04/14/2024 15:30:18 10/06/2024 text/html ROS as noted in the HPI FBSEhx: nonereports: would like rec for KP on armsacne8 monthstx:azelaic acid 15 % topical gel ( prn) , clindamycin swabsreports: needs refills, doing good so far with just the swabs. ELISHA HERNANDEZ [address] [place], [address], [facility] 10/06/2024 17:13:56 OBGyn Episode No OBEpisode recorded.
[2025-01-19 07:55] LABS: Hematocrit 44.5 % (37.0-47.0); Hemoglobin 15.1 g/dL (12.2-16.2); Immature Granulocytes % 0.2 %; Mean Corpuscular HGB Conc 33.9 g/dL (31.8-35.4); Mean Corpuscular Hemoglobin 30.7 pg (27.0-31.2); Mean Corpuscular Volume 90.4 fl (81-99); Nucleated Red Blood Cells % 0 %; Platelet Count 218 K/mm3 (142-424); Red Blood Count 4.92 M/mm3 (4.20-5.40); Red Cell Distribution Width-SD 41.5 fL; White Blood Count 9.1 K/mm3 (4.8-10.8)
[2025-01-19 08:00] VITALS: BP 92/59
[2025-01-19] MEDS: ONDANSETRON 4MG/2ML VIAL 4 MG IV (08:01)
[2025-01-19] MEDS: LACTATED RINGERS 1000ML 1,000 ML 999 ML IV (08:01)
[2025-01-19 08:03] LABS: Activated Partial Thrombo Time 24.8 seconds (22.8-30.6); INR 1.03 (0.9-1.1); Prothrombin Time 11.4 seconds (10.1-12.5)
[2025-01-19 08:09] LABS: HCG Qualitative, Serum Negative (Negative)
[2025-01-19 08:30] VITALS: BP 95/56
[2025-01-19 08:30] LABS: Albumin Level 4.2 g/dl (3.5-5.0); Chloride 103 mmol/L (98-107); Potassium 4.0 mmoL/L (3.5-5.1)
[2025-01-19 08:32] LABS: Blood Urea Nitrogen 13 mg/dl (7-17); Creatinine Clearance Estimated 167 mL/min (50-200); Creatinine,Serum 0.70 mg/dl (0.52-1.04); Estimated Glomerular Filt Rate 99 ml/min (>60); GFR (African American) 120 ML/MIN (>60)
[2025-01-19 08:33] LABS: Alanine Aminotransferase 26 U/L (12-78); Albumin/Globulin Ratio 1.3 (1.1-1.8); Alkaline Phosphatase 123 U/L (38-126); Anion Gap 12.0 mEq/L (5-15); Aspartate Amino Transferase 29 U/L (14-36); Bilirubin,Total 0.4 mg/dl (0.2-1.3); Calcium 9.3 mg/dl (8.4-10.2); Carbon Dioxide 25 mmol/L (22.0-30.0); Globulin 3.3 g/dL (1.3-3.2); Glucose 106 mg/dl (74-100); Lipase 179 U/L (23-300); Sodium 136 mmol/L (136-145); Total Protein,Serum 7.5 g/dl (6.3-8.2)
[2025-01-19] MEDS: IOPAMIDOL-370 (76%);100ML BOTTLE 75 ML IV (08:45)
[2025-01-19] MEDS: SODIUM CHLORIDE 0.9% 10ML SYR (RAD ONLY) 10 ML IV (08:45)
[2025-01-19 09:08] LABS: Hepatitis C Ab Qual. W/ RFX NEGATIVE (Negative)
[2025-01-19 09:25] LABS: Microscopic, Urine URINE MICROSCOPIC (MICROSCOPIC)
[2025-01-19 09:30] VITALS: BP 112/68; PULSE 58; O2SAT 100
[2025-01-19 09:30] LABS: Bilirubin,Urine Negative (Negative); Color,Urine YELLOW (Yellow); Glucose,Urine (UA) Negative (Negative); Ketones,Urine Negative (Negative); Leukocyte Esterase,Urine Negative (Negative); PH,Urine 5.5 (5.0-8.5); Protein,Urine Negative (Negative); Urobilinogen,Urine 0.2 EU/dl (0.2)
[2025-01-19 09:42] LABS: Specific Gravity, Urine 1.029 (1.005-1.030)
[2025-01-19 10:18] VITALS: BP 96/61; PULSE 70; RESP 17; TEMP 36.9; O2SAT 98
[2025-01-19 10:46] LABS: Bacteria,Urine Trace /lpf
== END 2025-01-19 10:34 | disposition home or self-care (01) ==
PROVIDERS: Emergency Provider Student in an Organized Health Care Education/Training Program; PCP Internal Medicine Adolescent Medicine
DX: R10.31 Right lower quadrant pain (principal); K52.9 Noninfective gastroenteritis and colitis, unspecified
CPT/HCPCS: 74177; 80053; 81001; 83690; 84703; 85025; 85610; 85730; 86803; 86850; 87389; 96361; 96374; 99285; J2405; J7120; Q9967